=== PATIENT | female | born 1950 ===

== ENCOUNTER 2021-06-20 16:31 | Inpatient (IN) | payer OTHER, MEDICAID ==
[~2021-06-20] VITALS: Ht 157.5 cm; Wt 108.2 kg
[2021-06-20] MEDS ORDERED: ZINC SULFATE 220mg CAP or TAB PO ONE (16:45)
[2021-06-20] MEDS ORDERED: ASCORBIC ACID 500 MG TAB PO ONE (16:45)
[2021-06-20] MEDS ORDERED: DexAMETHasone SOD PHOS 10MG/1ML VIAL INJ IV ONE (16:45)
[2021-06-20] MEDS ORDERED: cefTRIAXone 1GM/50ML D5W 50 ML IV ONE (16:45)
[2021-06-20 17:03] LABS: Basophils # (auto) 0 10 ^3/uL (0-0.2); Eosinophils # (auto) 0 10 ^3/uL (0-0.8); Lymphocytes # (auto) 1.1 10 ^3/uL (0.4-5.4); Monocytes # (auto) 0.7 10 ^3/uL (0-1.3)
[2021-06-20 17:05] LABS: Basophils % (auto) 0.3 % (0.0-2.0); Hemoglobin 11.6 g/dL (12.2-16.2); Lymphocytes % (auto) 10.7 % (10.0-50.0); Mean Corpuscular Hemoglobin 26.7 pg (28.0-32.0); Mean Corpuscular Hgb Conc. 34.3 g/dL (32.0-36.0); Monocytes % (auto) 7.2 % (0.0-12.0); Neutrophils % (auto) 81.8 % (37.0-80.0); Red Blood Cells 4.35 10^6/uL (4.0-5.20); Red Cell Distribution Width 13.9 % (11.8-14.3); White Blood Cell 9.8 10^3/uL (4.4-10.8)
[2021-06-20 17:21] LABS: Albumin 2.3 g/dL (3.4-5.0); Anion Gap 7 (5-15); Blood Urea Nitrogen 20 mg/dL (7-18); Carbon Dioxide 28 mmol/L (21-32); Chloride 97 mmol/L (98-107); Glucose 182 mg/dL (74-106); Potassium 4.4 mmol/L (3.5-5.1); Sodium 132 mmol/L (136-145)
[2021-06-20 17:26] LABS: Alanine Aminotransferase 25 U/L (13-56); Alkaline Phosphatase 94 U/L (45-117); Aspartate Aminotransferase 50 U/L (15-37); BUN/Creatinine Ratio 18.5; Bilirubin, Total 0.6 mg/dL (0.2-1.0); GFR African American 65 mL/min; GFR Non-African American 54 mL/min; Total Protein 7.6 g/dL (6.4-8.2)
[2021-06-20] MEDS ORDERED: REMDESIVIR PER PHARMACY 0 ML IV SCH (18:00)
[2021-06-20] MEDS ORDERED: REMDESIVIR 200 MG in NS 210ml LOADING DOSE ADULT IV ONE (20:00)
[2021-06-20 20:16] LABS: INR 0.92 (0.9-1.15); Partial Thromboplastin Time 29.8 sec (23.0-31.2)
[2021-06-20 20:18] VITALS: BP 170/84
[2021-06-20] MEDS ORDERED: MORPHINE SULFATE INJECTION 2 MG/ML SYRG IV PRN (21:45)
[2021-06-20] MEDS ORDERED: HYDROcodone-ACET 5/325MG TAB PO PRN (21:45)
[2021-06-20] MEDS ORDERED: ONDANSETRON HCL 4 MG/2 ML VIAL IV PRN (21:45)
[2021-06-20] MEDS ORDERED: DEXTROSE (50%) 50ML SYRG IV PRN (21:45)
[2021-06-20] MEDS ORDERED: ALBUTEROL SULF HFA 90MCG INH 200DOSE IN PRN (21:45)
[2021-06-20] MEDS ORDERED: DOCUSATE SOD 100 MG CAP PO PRN (21:45)
[2021-06-20] MEDS ORDERED: NITROGLYCERIN 0.4 MG SL TAB SL PRN (21:45)
[2021-06-20] MEDS ORDERED: ACETAMINOPHEN 325 MG TAB PO PRN (21:45)
[2021-06-20] MEDS ORDERED: BUDESONIDE (INHALATION) 180 MCG IH IN SCH (22:00)
[2021-06-20] MEDS: SODIUM CHLORIDE 0.9% 1,000 ML IV SCH (22:25)
[2021-06-20] MEDS: ENOXAPARIN SOD 40 MG/0.4 ML SYRINGE SC SCH (22:25)
[2021-06-20] MEDS: FAMOTIDINE (10MG/ML) 2ML VL IV SCH (22:25)
[2021-06-20] MEDS: DOXYCYCLINE 100MG/250ML 250 ML IV SCH (23:03)
[2021-06-20 23:26] VITALS: BP 162/76
[2021-06-20] MEDS: BUDESONIDE (INHALATION) 0.5 MG/2 ML NEB NEB SCH (23:26)
[2021-06-20] MEDS: ALBUTEROL SULF 2.5 MG/0.5ML(0.5%) NEB SOLN NEB SCH (23:26)
[2021-06-20] MEDS: IPRATROPIUM BROM 0.5 MG/2.5ML INH SOL NEB SCH (23:26)
[2021-06-21] VITALS (8 sets, daily range): BP systolic 128–169; BP diastolic 65–82
[2021-06-21] MEDS: InsuLIN REG 1unit/0.01ml Soln (100units/ml) SC SCH ×4 (00:08→18:17)
[2021-06-21] MEDS: ACCU-CHEK COMFORT CURVE STRIP VI SCH ×4 (00:15→18:13)
[2021-06-21] MEDS ORDERED: hydrALAZINE HCL 20 MG/ML VL IV PRN (00:15)
[2021-06-21] MEDS: ALBUTEROL SULF 2.5 MG/0.5ML(0.5%) NEB SOLN NEB SCH ×2 (06:02→20:38)
[2021-06-21] MEDS: IPRATROPIUM BROM 0.5 MG/2.5ML INH SOL NEB SCH ×2 (06:02→20:38)
[2021-06-21] MEDS: BUDESONIDE (INHALATION) 0.5 MG/2 ML NEB NEB SCH ×2 (06:02→20:38)
[2021-06-21 07:40] LABS: Basophils # (auto) 0 10 ^3/uL (0-0.2); Eosinophils # (auto) 0 10 ^3/uL (0-0.8); Hemoglobin 10.8 g/dL (12.2-16.2); Lymphocytes # (auto) 0.7 10 ^3/uL (0.4-5.4); Monocytes # (auto) 0.5 10 ^3/uL (0-1.3)
[2021-06-21 07:43] LABS: Basophils % (auto) 0.3 % (0.0-2.0); Hematocrit 31.2 % (36.0-46.0); Mean Corpuscular Hemoglobin 26.8 pg (28.0-32.0); Mean Corpuscular Hgb Conc. 34.5 g/dL (32.0-36.0); Mean Corpuscular Volume 77.6 fL (80.0-100.0); Monocytes % (auto) 6.3 % (0.0-12.0); Neutrophils # (auto) 6.1 10 ^3/uL (1.6-8.6); Neutrophils % (auto) 83.4 % (37.0-80.0); Red Blood Cells 4.01 10^6/uL (4.0-5.20); Red Cell Distribution Width 13.8 % (11.8-14.3); White Blood Cell 7.3 10^3/uL (4.4-10.8)
[2021-06-21 08:01] LABS: Albumin 1.9 g/dL (3.4-5.0); Calcium 7.7 mg/dL (8.5-10.1)
[2021-06-21 08:04] LABS: BUN/Creatinine Ratio 21.8; Bilirubin, Total 0.5 mg/dL (0.2-1.0); Total Protein 6.8 g/dL (6.4-8.2)
[2021-06-21] MEDS ORDERED: ALBU108A5 PO (11:27)
[2021-06-21] MEDS ORDERED: MELO1TAB56 PO (11:27)
[2021-06-21] MEDS ORDERED: INSU300I SC (11:27)
[2021-06-21] MEDS ORDERED: [UNRECOGNIZED DRUG - CODE] PO (11:27)
[2021-06-21] MEDS ORDERED: INSU100I51 SC (11:27)
[2021-06-21] MEDS ORDERED: LISI20TA28 PO (11:27)
[2021-06-21] MEDS ORDERED: ASPI-318 PO (11:27)
[2021-06-21] MEDS: DOXYCYCLINE 100MG/250ML 250 ML IV SCH ×2 (11:36→22:34)
[2021-06-21] MEDS: FAMOTIDINE (10MG/ML) 2ML VL IV SCH (11:36)
[2021-06-21] MEDS: DexAMETHasone SOD PHOS 10MG/1ML VIAL INJ IV SCH (11:36)
[2021-06-21] MEDS: MULTIPLE VITAMIN TAB PO SCH (11:37)
[2021-06-21] MEDS: ASCORBIC ACID 1,000 MG TAB PO SCH (11:37)
[2021-06-21] MEDS: ZINC SULFATE 220mg CAP or TAB PO SCH (11:37)
[2021-06-21] MEDS: ENOXAPARIN SOD 40 MG/0.4 ML SYRINGE SC SCH ×2 (11:38→22:22)
[2021-06-21] MEDS: CHOLECALCIFEROL (VITD3) 2,000 UNIT CAP/TAB PO SCH (11:38)
[2021-06-21] MEDS ORDERED: IOHEXOL 350 MG/ML 100ML IJ ONE (13:22)
[2021-06-21] MEDS ORDERED: SUCCINYLCHOLINE CHLORIDE 20 MG/ML 10ML VIAL IV ONE (14:48)
[2021-06-21] MEDS ORDERED: ETOMIDATE (2MG/ML) 20ML VIAL IV ONE (14:48)
[2021-06-21] MEDS ORDERED: MIDAZOLAM DRIP 50 mg/50mL 50 ML IV ONE (14:48)
[2021-06-21] MEDS: REMDESIVIR 100mg 100 MG in SODIUM CHL 0.9% 230 ML IV SCH (15:00)
[2021-06-21] MEDS: PROPOFOL 100 ML IV SCH (15:03)
[2021-06-21] MEDS: fentaNYL Drip 2500mCg/250mlNS 250 ML IV SCH (15:10)
[2021-06-21] MEDS ORDERED: PROPOFOL 100 ML IV ONE (15:27)
[2021-06-21] MEDS ORDERED: ROCURONIUM 10MG/ML 10ML VIAL IV ONE (15:46)
[2021-06-21] MEDS ORDERED: fentaNYL Drip 2500mCg/250mlNS 250 ML IV ONE (15:46)
[2021-06-21] MEDS ORDERED: NOREPINEPHRINE 8 MG/250ML KIT 250 ML IV ONE (16:20)
[2021-06-21] MEDS: NOREPINEPHRINE 8 MG/250ML KIT 250 ML IV SCH (16:30)
[2021-06-21] MEDS: SODIUM CHLORIDE 0.9% 1,000 ML IV SCH ×2 (16:49→18:18)
[2021-06-21] MEDS: MIDAZOLAM DRIP 50 mg/50mL 50 ML IV SCH (17:23)
[2021-06-21 20:28] LABS: Urine Bacteria NONE SEEN /hpf (None Seen); Urine Blood Negative /uL (Negative); Urine Specific Gravity 1.017 (1.001-1.035); Urine WBC 47 /hpf (0 - 5)
[2021-06-22] VITALS (11 sets, daily range): BP systolic 105–147; BP diastolic 50–68
[2021-06-22] MEDS: ACCU-CHEK COMFORT CURVE STRIP VI SCH ×4 (00:42→18:00)
[2021-06-22] MEDS: InsuLIN REG 1unit/0.01ml Soln (100units/ml) SC SCH ×4 (00:42→18:30)
[2021-06-22] MEDS: ALBUTEROL SULF 2.5 MG/0.5ML(0.5%) NEB SOLN NEB SCH ×3 (06:49→23:10)
[2021-06-22] MEDS: BUDESONIDE (INHALATION) 0.5 MG/2 ML NEB NEB SCH ×2 (06:50→23:10)
[2021-06-22] MEDS: IPRATROPIUM BROM 0.5 MG/2.5ML INH SOL NEB SCH ×3 (06:50→23:10)
[2021-06-22 07:02] LABS: Basophils # (auto) 0 10 ^3/uL (0-0.2); Eosinophils # (auto) 0 10 ^3/uL (0-0.8); Hemoglobin 9.7 g/dL (12.2-16.2); Lymphocytes # (auto) 0.9 10 ^3/uL (0.4-5.4)
[2021-06-22 07:05] LABS: Basophils % (auto) 0.1 % (0.0-2.0); Hematocrit 27.7 % (36.0-46.0); Lymphocytes % (auto) 9.9 % (10.0-50.0); Mean Corpuscular Hemoglobin 27.1 pg (28.0-32.0); Mean Corpuscular Volume 77.3 fL (80.0-100.0); Monocytes # (auto) 0.8 10 ^3/uL (0-1.3); Neutrophils # (auto) 7.8 10 ^3/uL (1.6-8.6); Nucleated Red Blood Cells % 0.1 %; Red Blood Cells 3.58 10^6/uL (4.0-5.20); Red Cell Distribution Width 13.5 % (11.8-14.3); White Blood Cell 9.5 10^3/uL (4.4-10.8)
[2021-06-22 07:26] LABS: Potassium 4.3 mmol/L (3.5-5.1)
[2021-06-22 07:49] LABS: Albumin 1.7 g/dL (3.4-5.0); BUN/Creatinine Ratio 24.8; Bilirubin, Total 0.4 mg/dL (0.2-1.0); CRP High Sensitivity 9.67 mg/dL (< 0.3); Calcium 7.7 mg/dL (8.5-10.1)
[2021-06-22] MEDS: MULTIPLE VITAMIN TAB PO SCH (09:19)
[2021-06-22] MEDS: CHOLECALCIFEROL (VITD3) 2,000 UNIT CAP/TAB PO SCH (09:30)
[2021-06-22] MEDS: ZINC SULFATE 220mg CAP or TAB PO SCH (09:30)
[2021-06-22] MEDS: DexAMETHasone SOD PHOS 10MG/1ML VIAL INJ IV SCH (09:30)
[2021-06-22] MEDS: DOXYCYCLINE 100MG/250ML 250 ML IV SCH (09:30)
[2021-06-22] MEDS: ASCORBIC ACID 1,000 MG TAB PO SCH (09:30)
[2021-06-22] MEDS: ENOXAPARIN SOD 40 MG/0.4 ML SYRINGE SC SCH (09:30)
[2021-06-22] MEDS ORDERED: IOHEXOL 350 MG/ML 100ML IJ ONE (14:12)
[2021-06-22] MEDS: REMDESIVIR 100mg 100 MG in SODIUM CHL 0.9% 230 ML IV SCH (15:00)
[2021-06-22] MEDS: PROPOFOL 100 ML IV SCH (17:15)
[2021-06-22] MEDS: MIDAZOLAM DRIP 50 mg/50mL 50 ML IV SCH (19:40)
[2021-06-22] MEDS: fentaNYL Drip 2500mCg/250mlNS 250 ML IV SCH (19:50)
[2021-06-22] MEDS: SODIUM CHLORIDE 0.9% 1,000 ML IV SCH (23:45)
[2021-06-23] VITALS (66 sets, daily range): BP systolic 110–153; BP diastolic 40–70
[2021-06-23] MEDS: ACCU-CHEK COMFORT CURVE STRIP VI SCH ×4 (02:20→17:33)
[2021-06-23] MEDS: InsuLIN REG 1unit/0.01ml Soln (100units/ml) SC SCH ×4 (02:25→17:58)
[2021-06-23] MEDS: ENOXAPARIN SOD 40 MG/0.4 ML SYRINGE SC SCH ×3 (02:31→20:24)
[2021-06-23] MEDS: DOXYCYCLINE 100MG/250ML 250 ML IV SCH ×3 (02:31→20:23)
[2021-06-23 07:25] LABS: Basophils # (auto) 0 10 ^3/uL (0-0.2); Eosinophils # (auto) 0 10 ^3/uL (0-0.8); Lymphocytes # (auto) 1.1 10 ^3/uL (0.4-5.4)
[2021-06-23 07:27] LABS: Basophils % (auto) 0.2 % (0.0-2.0); Hematocrit 29.2 % (36.0-46.0); Hemoglobin 10.3 g/dL (12.2-16.2); Lymphocytes % (auto) 6.6 % (10.0-50.0); Mean Corpuscular Hemoglobin 27.1 pg (28.0-32.0); Mean Corpuscular Hgb Conc. 35.1 g/dL (32.0-36.0); Monocytes % (auto) 6.1 % (0.0-12.0); Neutrophils # (auto) 14.6 10 ^3/uL (1.6-8.6); Neutrophils % (auto) 87.1 % (37.0-80.0); Red Cell Distribution Width 13.9 % (11.8-14.3); White Blood Cell 16.8 10^3/uL (4.4-10.8)
[2021-06-23] MEDS: ALBUTEROL SULF 2.5 MG/0.5ML(0.5%) NEB SOLN NEB SCH ×3 (07:34→19:19)
[2021-06-23] MEDS: BUDESONIDE (INHALATION) 0.5 MG/2 ML NEB NEB SCH ×2 (07:34→19:19)
[2021-06-23] MEDS: IPRATROPIUM BROM 0.5 MG/2.5ML INH SOL NEB SCH ×3 (07:36→19:19)
[2021-06-23 07:40] LABS: Albumin 1.7 g/dL (3.4-5.0); Calcium 7.7 mg/dL (8.5-10.1); Potassium 4.2 mmol/L (3.5-5.1)
[2021-06-23 07:48] LABS: Bilirubin, Total 0.5 mg/dL (0.2-1.0); CRP High Sensitivity 6.37 mg/dL (< 0.3); Total Protein 5.9 g/dL (6.4-8.2)
[2021-06-23] MEDS: MIDAZOLAM DRIP 50 mg/50mL 50 ML IV SCH ×2 (08:22→18:02)
[2021-06-23] MEDS: DexAMETHasone SOD PHOS 10MG/1ML VIAL INJ IV SCH (10:58)
[2021-06-23] MEDS: CHOLECALCIFEROL (VITD3) 2,000 UNIT CAP/TAB PO SCH (10:59)
[2021-06-23] MEDS: ZINC SULFATE 220mg CAP or TAB PO SCH (10:59)
[2021-06-23] MEDS: MULTIPLE VITAMIN TAB PO SCH (10:59)
[2021-06-23] MEDS: ASCORBIC ACID 1,000 MG TAB PO SCH (11:00)
[2021-06-23 14:24] LABS: INR 1.13 (0.9-1.15); Partial Thromboplastin Time 28.5 sec (23.6-33.0)
[2021-06-23] MEDS ORDERED: OMEP-263 PO (14:30)
[2021-06-23] MEDS ORDERED: LIDOCAINE 1% (LOCAL ANESTH.) PF 5ml SDV ID ONE (16:00)
[2021-06-23] MEDS: SODIUM CHLORIDE 0.9% 1,000 ML IV SCH (16:25)
[2021-06-23] MEDS: REMDESIVIR 100mg 100 MG in SODIUM CHL 0.9% 230 ML IV SCH (16:31)
[2021-06-23] MEDS: NOREPINEPHRINE 8 MG/250ML KIT 250 ML IV SCH (17:15)
[2021-06-23] MEDS: fentaNYL Drip 2500mCg/250mlNS 250 ML IV SCH ×2 (17:15→20:25)
[2021-06-23] MEDS: PROPOFOL 100 ML IV SCH (17:15)
[2021-06-23] MEDS: SODIUM CHLOR 0.9% PF (SALINE LOCK) 10ML VIAL/SYR IV SCH (20:23)
[2021-06-24] VITALS (105 sets, daily range): BP systolic 100–155; BP diastolic 49–65
[2021-06-24] MEDS: ACCU-CHEK COMFORT CURVE STRIP VI SCH ×4 (00:39→17:56)
[2021-06-24] MEDS: InsuLIN REG 1unit/0.01ml Soln (100units/ml) SC SCH ×4 (00:40→17:57)
[2021-06-24] MEDS: MIDAZOLAM DRIP 50 mg/50mL 50 ML IV SCH ×4 (01:46→23:30)
[2021-06-24 05:32] LABS: Basophils # (auto) 0 10 ^3/uL (0-0.2); Basophils % (auto) 0.1 % (0.0-2.0); Eosinophils # (auto) 0 10 ^3/uL (0-0.8); Hemoglobin 10.3 g/dL (12.2-16.2); Lymphocytes # (auto) 0.7 10 ^3/uL (0.4-5.4); Mean Corpuscular Hemoglobin 26.3 pg (28.0-32.0); White Blood Cell 11.2 10^3/uL (4.4-10.8)
[2021-06-24 05:34] LABS: Lymphocytes % (auto) 6.3 % (10.0-50.0); Mean Corpuscular Hgb Conc. 34.3 g/dL (32.0-36.0); Mean Corpuscular Volume 76.8 fL (80.0-100.0); Monocytes # (auto) 0.7 10 ^3/uL (0-1.3); Monocytes % (auto) 5.9 % (0.0-12.0); Neutrophils # (auto) 9.8 10 ^3/uL (1.6-8.6); Neutrophils % (auto) 87.7 % (37.0-80.0); Red Cell Distribution Width 13.6 % (11.8-14.3)
[2021-06-24 05:59] LABS: Albumin 1.5 g/dL (3.4-5.0); Calcium 7.7 mg/dL (8.5-10.1); Potassium 4.3 mmol/L (3.5-5.1)
[2021-06-24 06:08] LABS: BUN/Creatinine Ratio 43.8; Bilirubin, Total 0.5 mg/dL (0.2-1.0); CRP High Sensitivity 11.3 mg/dL (< 0.3); Total Protein 5.9 g/dL (6.4-8.2)
[2021-06-24] MEDS: BUDESONIDE (INHALATION) 0.5 MG/2 ML NEB NEB SCH ×2 (07:05→22:43)
[2021-06-24] MEDS: IPRATROPIUM BROM 0.5 MG/2.5ML INH SOL NEB SCH ×5 (07:05→22:43)
[2021-06-24] MEDS: ALBUTEROL SULF 2.5 MG/0.5ML(0.5%) NEB SOLN NEB SCH ×5 (07:05→22:43)
[2021-06-24] MEDS: SODIUM CHLORIDE 0.9% 1,000 ML IV SCH ×2 (09:05→14:28)
[2021-06-24] MEDS: ENOXAPARIN SOD 40 MG/0.4 ML SYRINGE SC SCH ×2 (09:07→22:22)
[2021-06-24] MEDS: DexAMETHasone SOD PHOS 10MG/1ML VIAL INJ IV SCH (09:07)
[2021-06-24] MEDS: ZINC SULFATE 220mg CAP or TAB PO SCH (09:08)
[2021-06-24] MEDS: MULTIPLE VITAMIN TAB PO SCH (09:08)
[2021-06-24] MEDS: CHOLECALCIFEROL (VITD3) 2,000 UNIT CAP/TAB PO SCH (09:08)
[2021-06-24] MEDS: ASCORBIC ACID 1,000 MG TAB PO SCH (09:08)
[2021-06-24] MEDS: SODIUM CHLOR 0.9% PF (SALINE LOCK) 10ML VIAL/SYR IV SCH ×2 (09:09→22:22)
[2021-06-24] MEDS: DOXYCYCLINE 100MG/250ML 250 ML IV SCH ×2 (09:09→22:22)
[2021-06-24] MEDS: REMDESIVIR 100mg 100 MG in SODIUM CHL 0.9% 230 ML IV SCH (14:28)
[2021-06-24] MEDS: PROPOFOL 100 ML IV SCH (17:15)
[2021-06-24] MEDS: NOREPINEPHRINE 8 MG/250ML KIT 250 ML IV SCH (17:15)
[2021-06-24] MEDS: INSULIN LANTUS (GLARGINE) 1 /0.01ml (100units/ml) SC SCH (22:23)
[2021-06-24] MEDS: Glucerna 1.2 Cal 1Liter BOTTLE GT SCH (22:25)
[2021-06-25] VITALS (108 sets, daily range): BP systolic 80–156; BP diastolic 38–61
[2021-06-25] MEDS: ACCU-CHEK COMFORT CURVE STRIP VI SCH ×4 (00:49→18:00)
[2021-06-25] MEDS: InsuLIN REG 1unit/0.01ml Soln (100units/ml) SC SCH ×4 (00:51→18:38)
[2021-06-25] MEDS: IPRATROPIUM BROM 0.5 MG/2.5ML INH SOL NEB SCH ×6 (02:33→22:53)
[2021-06-25] MEDS: ALBUTEROL SULF 2.5 MG/0.5ML(0.5%) NEB SOLN NEB SCH ×6 (02:33→22:53)
[2021-06-25] MEDS: PROPOFOL 100 ML IV SCH (04:52)
[2021-06-25] MEDS: MIDAZOLAM DRIP 50 mg/50mL 50 ML IV SCH ×4 (05:18→23:34)
[2021-06-25] MEDS: BUDESONIDE (INHALATION) 0.5 MG/2 ML NEB NEB SCH ×2 (06:03→19:08)
[2021-06-25] MEDS: SODIUM CHLOR 0.9% PF (SALINE LOCK) 10ML VIAL/SYR IV SCH ×2 (08:30→21:04)
[2021-06-25] MEDS: DexAMETHasone SOD PHOS 10MG/1ML VIAL INJ IV SCH (08:30)
[2021-06-25] MEDS: DOXYCYCLINE 100MG/250ML 250 ML IV SCH (08:31)
[2021-06-25] MEDS: CHOLECALCIFEROL (VITD3) 2,000 UNIT CAP/TAB PO SCH (08:31)
[2021-06-25] MEDS: ZINC SULFATE 220mg CAP or TAB PO SCH (08:31)
[2021-06-25] MEDS: MULTIPLE VITAMIN TAB PO SCH (08:31)
[2021-06-25] MEDS: ASCORBIC ACID 1,000 MG TAB PO SCH (08:31)
[2021-06-25] MEDS: ENOXAPARIN SOD 40 MG/0.4 ML SYRINGE SC SCH ×2 (08:32→21:06)
[2021-06-25 09:38] LABS: Eosinophils # (auto) 0 10 ^3/uL (0-0.8)
[2021-06-25 10:01] LABS: BUN/Creatinine Ratio 41.2; Calcium 8.1 mg/dL (8.5-10.1); Potassium 4.5 mmol/L (3.5-5.1)
[2021-06-25 10:13] LABS: Basophils # (auto) 0.2 10 ^3/uL (0-0.2); Basophils % (auto) 0.7 % (0.0-2.0); Hematocrit 31.5 % (36.0-46.0); Hemoglobin 10.3 g/dL (12.2-16.2); Lymphocytes # (auto) 0.5 10 ^3/uL (0.4-5.4); Mean Corpuscular Hgb Conc. 32.7 g/dL (32.0-36.0); Mean Corpuscular Volume 79.5 fL (80.0-100.0); Monocytes # (auto) 1.9 10 ^3/uL (0-1.3); Monocytes % (auto) 7.6 % (0.0-12.0); Neutrophils % (auto) 89.7 % (37.0-80.0); Red Blood Cells 3.97 10^6/uL (4.0-5.20); Red Cell Distribution Width 14.4 % (11.8-14.3); White Blood Cell 24.5 10^3/uL (4.4-10.8)
[2021-06-25] MEDS: fentaNYL Drip 2500mCg/250mlNS 250 ML IV SCH ×2 (11:24→19:31)
[2021-06-25] MEDS: NOREPINEPHRINE 8 MG/250ML KIT 250 ML IV SCH (14:09)
[2021-06-25] MEDS: SODIUM CHLORIDE 0.9% 1,000 ML IV SCH (16:50)
[2021-06-25] MEDS: METOCLOPRAMIDE HCL 5MG/ml INJ 2ml VIAL IV SCH (21:04)
[2021-06-25] MEDS: INSULIN LANTUS (GLARGINE) 1 /0.01ml (100units/ml) SC SCH (21:05)
[2021-06-26] VITALS (95 sets, daily range): BP systolic 86–161; BP diastolic 35–68
[2021-06-26] MEDS: MIDAZOLAM DRIP 50 mg/50mL 50 ML IV SCH ×3 (00:24→21:13)
[2021-06-26] MEDS: PROPOFOL 100 ML IV SCH ×4 (00:25→21:14)
[2021-06-26] MEDS: InsuLIN REG 1unit/0.01ml Soln (100units/ml) SC SCH ×4 (00:55→18:14)
[2021-06-26] MEDS: ACCU-CHEK COMFORT CURVE STRIP VI SCH ×4 (00:56→18:08)
[2021-06-26] MEDS: ALBUTEROL SULF 2.5 MG/0.5ML(0.5%) NEB SOLN NEB SCH ×5 (02:46→22:37)
[2021-06-26] MEDS: IPRATROPIUM BROM 0.5 MG/2.5ML INH SOL NEB SCH ×6 (02:47→22:37)
[2021-06-26 06:03] LABS: Basophils # (auto) 0 10 ^3/uL (0-0.2); Basophils % (auto) 0.2 % (0.0-2.0); Eosinophils # (auto) 0 10 ^3/uL (0-0.8); Hematocrit 27.1 % (36.0-46.0); Hemoglobin 8.9 g/dL (12.2-16.2); Lymphocytes # (auto) 0.9 10 ^3/uL (0.4-5.4); Lymphocytes % (auto) 4.9 % (10.0-50.0); Mean Corpuscular Hemoglobin 25.9 pg (28.0-32.0); Mean Corpuscular Hgb Conc. 32.8 g/dL (32.0-36.0); Mean Corpuscular Volume 78.9 fL (80.0-100.0); Monocytes # (auto) 0.8 10 ^3/uL (0-1.3); Monocytes % (auto) 4.5 % (0.0-12.0); Neutrophils # (auto) 15.8 10 ^3/uL (1.6-8.6); Neutrophils % (auto) 90.4 % (37.0-80.0); Red Blood Cells 3.43 10^6/uL (4.0-5.20); Red Cell Distribution Width 14.5 % (11.8-14.3); White Blood Cell 17.5 10^3/uL (4.4-10.8)
[2021-06-26 06:13] LABS: BUN/Creatinine Ratio 39.6; Calcium 7.6 mg/dL (8.5-10.1); Potassium 4.7 mmol/L (3.5-5.1)
[2021-06-26] MEDS: Glucerna 1.2 Cal 1Liter BOTTLE GT SCH (06:25)
[2021-06-26] MEDS: fentaNYL Drip 2500mCg/250mlNS 250 ML IV SCH ×2 (06:26→15:58)
[2021-06-26] MEDS ORDERED: HEPARIN DRIP/D5W 100UNITS/ML 250 ML IV SCH ×2 (09:00→19:00)
[2021-06-26] MEDS ORDERED: HEPARIN SODIUM (PORCINE) 5000 UNITS/ML 1ML VIAL IV ONE (09:00)
[2021-06-26] MEDS ORDERED: AMIODARONE HCL 150 MG in D5W 5% 100 ML IV ONE (09:00)
[2021-06-26] MEDS ORDERED: AMIODARONE 450mg/250ml AE 250 ML IV SCH (09:15)
[2021-06-26 09:29] LABS: Basophils # (auto) 0 10 ^3/uL (0-0.2); Basophils % (auto) 0.2 % (0.0-2.0); Eosinophils # (auto) 0 10 ^3/uL (0-0.8); Hematocrit 27.6 % (36.0-46.0)
[2021-06-26 09:31] LABS: Lymphocytes % (auto) 5.5 % (10.0-50.0); Mean Corpuscular Hemoglobin 25.8 pg (28.0-32.0); Mean Corpuscular Hgb Conc. 32.6 g/dL (32.0-36.0); Monocytes # (auto) 0.5 10 ^3/uL (0-1.3); Monocytes % (auto) 3.1 % (0.0-12.0); Neutrophils # (auto) 15.7 10 ^3/uL (1.6-8.6); Neutrophils % (auto) 91.2 % (37.0-80.0); Red Cell Distribution Width 14.5 % (11.8-14.3); White Blood Cell 17.2 10^3/uL (4.4-10.8)
[2021-06-26] MEDS: BUDESONIDE (INHALATION) 0.5 MG/2 ML NEB NEB SCH ×2 (09:45→19:03)
[2021-06-26 09:46] LABS: INR 1.12 (0.9-1.15); Partial Thromboplastin Time 24.2 sec (23.6-33.0)
[2021-06-26] MEDS: METOCLOPRAMIDE HCL 5MG/ml INJ 2ml VIAL IV SCH ×2 (10:14→22:40)
[2021-06-26] MEDS: CHOLECALCIFEROL (VITD3) 2,000 UNIT CAP/TAB PO SCH (10:15)
[2021-06-26] MEDS: SODIUM CHLOR 0.9% PF (SALINE LOCK) 10ML VIAL/SYR IV SCH ×2 (10:15→22:41)
[2021-06-26] MEDS: DexAMETHasone SOD PHOS 10MG/1ML VIAL INJ IV SCH (10:15)
[2021-06-26] MEDS: ZINC SULFATE 220mg CAP or TAB PO SCH (10:15)
[2021-06-26] MEDS: MULTIPLE VITAMIN TAB PO SCH (10:15)
[2021-06-26] MEDS: ASCORBIC ACID 1,000 MG TAB PO SCH (10:15)
[2021-06-26] MEDS: SODIUM CHLORIDE 0.9% 1,000 ML IV SCH (11:15)
[2021-06-26 16:07] LABS: Protein, Urine 18.5 mg/dL (0.0-11.9)
[2021-06-26] MEDS: AMIODARONE 450mg/250ml AE 250 ML IV SCH ×2 (16:07→21:15)
[2021-06-26 17:32] LABS: INR 1.21 (0.9-1.15)
[2021-06-26 17:34] LABS: Partial Thromboplastin Time > 139.0 sec (23.6-33.0)
[2021-06-26] MEDS: NOREPINEPHRINE 8 MG/250ML KIT 250 ML IV SCH (21:14)
[2021-06-26] MEDS: INSULIN LANTUS (GLARGINE) 1 /0.01ml (100units/ml) SC SCH (22:40)
[2021-06-26] MEDS ORDERED: INSULIN LANTUS (GLARGINE) 1 /0.01ml (100units/ml) SC ONE (23:00)
[2021-06-26 23:30] LABS: INR 1.19 (0.9-1.15)
[2021-06-27] VITALS (105 sets, daily range): BP systolic 107–149; BP diastolic 39–58
[2021-06-27 00:09] LABS: Partial Thromboplastin Time > 139.0 sec (23.6-33.0)
[2021-06-27] MEDS: MIDAZOLAM DRIP 50 mg/50mL 50 ML IV SCH ×4 (00:24→22:22)
[2021-06-27] MEDS: InsuLIN REG 1unit/0.01ml Soln (100units/ml) SC SCH ×4 (00:53→17:42)
[2021-06-27] MEDS: ALBUTEROL SULF 2.5 MG/0.5ML(0.5%) NEB SOLN NEB SCH ×6 (02:44→22:38)
[2021-06-27] MEDS: IPRATROPIUM BROM 0.5 MG/2.5ML INH SOL NEB SCH ×6 (02:44→22:38)
[2021-06-27] MEDS: SODIUM CHLORIDE 0.9% 1,000 ML IV SCH (03:45)
[2021-06-27] MEDS: fentaNYL Drip 2500mCg/250mlNS 250 ML IV SCH ×2 (04:56→15:46)
[2021-06-27] MEDS: ACCU-CHEK COMFORT CURVE STRIP VI SCH ×4 (05:42→17:41)
[2021-06-27] MEDS: BUDESONIDE (INHALATION) 0.5 MG/2 ML NEB NEB SCH ×2 (06:04→19:11)
[2021-06-27 06:10] LABS: Basophils # (auto) 0.1 10 ^3/uL (0-0.2); Eosinophils # (auto) 0 10 ^3/uL (0-0.8); Hemoglobin 9.4 g/dL (12.2-16.2); Lymphocytes # (auto) 0.3 10 ^3/uL (0.4-5.4); Monocytes # (auto) 0.5 10 ^3/uL (0-1.3); Red Cell Distribution Width 14.8 % (11.8-14.3)
[2021-06-27 06:12] LABS: Basophils % (auto) 0.7 % (0.0-2.0); Hematocrit 27.8 % (36.0-46.0); Lymphocytes % (auto) 1.6 % (10.0-50.0); Mean Corpuscular Hemoglobin 26.9 pg (28.0-32.0); Mean Corpuscular Hgb Conc. 33.7 g/dL (32.0-36.0); Mean Corpuscular Volume 79.8 fL (80.0-100.0); Monocytes % (auto) 3.2 % (0.0-12.0); Neutrophils # (auto) 15.9 10 ^3/uL (1.6-8.6); Neutrophils % (auto) 94.5 % (37.0-80.0); Nucleated Red Blood Cells % 0.1 %; Red Blood Cells 3.48 10^6/uL (4.0-5.20); White Blood Cell 16.8 10^3/uL (4.4-10.8)
[2021-06-27 07:16] LABS: BUN/Creatinine Ratio 40.6; Potassium 4.6 mmol/L (3.5-5.1)
[2021-06-27 07:42] LABS: INR 1.11 (0.9-1.15)
[2021-06-27] MEDS: SODIUM CHLOR 0.9% PF (SALINE LOCK) 10ML VIAL/SYR IV SCH ×2 (10:00→21:58)
[2021-06-27] MEDS: CHOLECALCIFEROL (VITD3) 2,000 UNIT CAP/TAB PO SCH (10:00)
[2021-06-27] MEDS: DexAMETHasone SOD PHOS 10MG/1ML VIAL INJ IV SCH (10:29)
[2021-06-27] MEDS: METOCLOPRAMIDE HCL 5MG/ml INJ 2ml VIAL IV SCH ×2 (10:30→21:57)
[2021-06-27] MEDS: ASCORBIC ACID 1,000 MG TAB PO SCH (10:30)
[2021-06-27] MEDS: ZINC SULFATE 220mg CAP or TAB PO SCH (10:30)
[2021-06-27] MEDS: MULTIPLE VITAMIN TAB PO SCH (10:30)
[2021-06-27] MEDS: AMIODARONE HCL 200 MG TAB PO SCH ×2 (10:32→21:58)
[2021-06-27] MEDS: PROPOFOL 100 ML IV SCH ×3 (12:57→23:29)
[2021-06-27 15:42] LABS: INR 1.05 (0.9-1.15); Partial Thromboplastin Time 65.5 sec (23.6-33.0)
[2021-06-27] MEDS: DOXYCYCLINE 100MG/250ML 250 ML IV SCH (16:02)
[2021-06-27] MEDS: NOREPINEPHRINE 8 MG/250ML KIT 250 ML IV SCH (17:15)
[2021-06-27] MEDS: ENOXAPARIN SOD 100 MG/1 ML SYRINGE SC SCH (21:59)
[2021-06-27] MEDS: INSULIN LANTUS (GLARGINE) 1 /0.01ml (100units/ml) SC SCH (22:00)
[2021-06-28] VITALS (105 sets, daily range): BP systolic 109–162; BP diastolic 38–60
[2021-06-28] MEDS: DOXYCYCLINE 100MG/250ML 250 ML IV SCH ×2 (01:30→12:56)
[2021-06-28] MEDS: InsuLIN REG 1unit/0.01ml Soln (100units/ml) SC SCH ×4 (01:31→18:00)
[2021-06-28] MEDS: MIDAZOLAM DRIP 50 mg/50mL 50 ML IV SCH ×5 (02:23→22:33)
[2021-06-28] MEDS: ALBUTEROL SULF 2.5 MG/0.5ML(0.5%) NEB SOLN NEB SCH ×6 (02:26→22:05)
[2021-06-28] MEDS: IPRATROPIUM BROM 0.5 MG/2.5ML INH SOL NEB SCH ×6 (02:26→22:05)
[2021-06-28 05:28] LABS: Basophils # (auto) 0 10 ^3/uL (0-0.2); Basophils % (auto) 0.1 % (0.0-2.0); Eosinophils # (auto) 0 10 ^3/uL (0-0.8); Lymphocytes # (auto) 0.4 10 ^3/uL (0.4-5.4); Mean Corpuscular Hgb Conc. 32.7 g/dL (32.0-36.0); Monocytes # (auto) 0.5 10 ^3/uL (0-1.3); Monocytes % (auto) 3.7 % (0.0-12.0)
[2021-06-28 05:30] LABS: Hematocrit 27.2 % (36.0-46.0); Hemoglobin 8.9 g/dL (12.2-16.2); Lymphocytes % (auto) 2.4 % (10.0-50.0); Mean Corpuscular Hemoglobin 26.1 pg (28.0-32.0); Mean Corpuscular Volume 79.8 fL (80.0-100.0); Neutrophils # (auto) 13.7 10 ^3/uL (1.6-8.6); Neutrophils % (auto) 93.8 % (37.0-80.0); Red Blood Cells 3.41 10^6/uL (4.0-5.20); Red Cell Distribution Width 14.9 % (11.8-14.3); White Blood Cell 14.6 10^3/uL (4.4-10.8)
[2021-06-28] MEDS: fentaNYL Drip 2500mCg/250mlNS 250 ML IV SCH ×2 (05:43→16:42)
[2021-06-28 05:52] LABS: BUN/Creatinine Ratio 45.6; Calcium 8.4 mg/dL (8.5-10.1); Potassium 5.4 mmol/L (3.5-5.1)
[2021-06-28] MEDS: ACCU-CHEK COMFORT CURVE STRIP VI SCH ×4 (06:24→18:00)
[2021-06-28] MEDS: PROPOFOL 100 ML IV SCH ×4 (06:25→20:43)
[2021-06-28] MEDS: BUDESONIDE (INHALATION) 0.5 MG/2 ML NEB NEB SCH ×2 (08:29→22:05)
[2021-06-28] MEDS: METOCLOPRAMIDE HCL 5MG/ml INJ 2ml VIAL IV SCH ×2 (10:05→22:31)
[2021-06-28] MEDS: DexAMETHasone SOD PHOS 10MG/1ML VIAL INJ IV SCH (10:05)
[2021-06-28] MEDS: ASCORBIC ACID 1,000 MG TAB PO SCH (10:05)
[2021-06-28] MEDS: CHOLECALCIFEROL (VITD3) 2,000 UNIT CAP/TAB PO SCH (10:05)
[2021-06-28] MEDS: AMIODARONE HCL 200 MG TAB PO SCH ×2 (10:05→22:31)
[2021-06-28] MEDS: MULTIPLE VITAMIN TAB PO SCH (10:06)
[2021-06-28] MEDS: SODIUM CHLOR 0.9% PF (SALINE LOCK) 10ML VIAL/SYR IV SCH ×2 (10:06→22:31)
[2021-06-28] MEDS: ZINC SULFATE 220mg CAP or TAB PO SCH (10:06)
[2021-06-28] MEDS: ENOXAPARIN SOD 100 MG/1 ML SYRINGE SC SCH ×2 (10:06→22:32)
[2021-06-28] MEDS ORDERED: CALCIUM GLUC 1,000mg/50ml-NS 50 ML IV ONE (10:45)
[2021-06-28] MEDS ORDERED: SODIUM BICARBONATE 8.4 % INJ 50ML VIAL IV ONE (10:45)
[2021-06-28] MEDS ORDERED: DEXTROSE (50%) 50ML SYRG IV ONE (10:45)
[2021-06-28] MEDS ORDERED: FUROSEMIDE 40 MG/4 ML VIAL IV ONE (10:45)
[2021-06-28] MEDS ORDERED: InsuLIN REG 1unit/0.01ml Soln (100units/ml) SC ONE (10:45)
[2021-06-28] MEDS: NOREPINEPHRINE 8 MG/250ML KIT 250 ML IV SCH (17:15)
[2021-06-28] MEDS: INSULIN LANTUS (GLARGINE) 1 /0.01ml (100units/ml) SC SCH (22:32)
[2021-06-29] VITALS (98 sets, daily range): BP systolic 109–162; BP diastolic 35–58
[2021-06-29] MEDS: InsuLIN REG 1unit/0.01ml Soln (100units/ml) SC SCH ×4 (01:10→17:27)
[2021-06-29] MEDS: PROPOFOL 100 ML IV SCH ×5 (01:11→18:45)
[2021-06-29] MEDS: ALBUTEROL SULF 2.5 MG/0.5ML(0.5%) NEB SOLN NEB SCH ×6 (02:04→21:54)
[2021-06-29] MEDS: IPRATROPIUM BROM 0.5 MG/2.5ML INH SOL NEB SCH ×6 (02:04→21:54)
[2021-06-29] MEDS: DOXYCYCLINE 100MG/250ML 250 ML IV SCH ×2 (02:05→12:20)
[2021-06-29] MEDS: MIDAZOLAM DRIP 50 mg/50mL 50 ML IV SCH ×6 (04:32→21:44)
[2021-06-29 05:46] LABS: Basophils # (auto) 0.1 10 ^3/uL (0-0.2); Basophils % (auto) 0.3 % (0.0-2.0); Eosinophils # (auto) 0 10 ^3/uL (0-0.8); Hemoglobin 9.2 g/dL (12.2-16.2); Red Cell Distribution Width 14.9 % (11.8-14.3); White Blood Cell 15.8 10^3/uL (4.4-10.8)
[2021-06-29 05:48] LABS: Hematocrit 28.3 % (36.0-46.0); Lymphocytes # (auto) 0.6 10 ^3/uL (0.4-5.4); Lymphocytes % (auto) 3.5 % (10.0-50.0); Mean Corpuscular Hemoglobin 25.7 pg (28.0-32.0); Mean Corpuscular Hgb Conc. 32.6 g/dL (32.0-36.0); Mean Corpuscular Volume 78.8 fL (80.0-100.0); Monocytes # (auto) 0.8 10 ^3/uL (0-1.3); Monocytes % (auto) 5.2 % (0.0-12.0); Neutrophils # (auto) 14.3 10 ^3/uL (1.6-8.6); Red Blood Cells 3.59 10^6/uL (4.0-5.20)
[2021-06-29] MEDS: ACCU-CHEK COMFORT CURVE STRIP VI SCH ×4 (06:13→17:33)
[2021-06-29] MEDS: fentaNYL Drip 2500mCg/250mlNS 250 ML IV SCH (06:15)
[2021-06-29] MEDS: BUDESONIDE (INHALATION) 0.5 MG/2 ML NEB NEB SCH ×2 (06:24→18:30)
[2021-06-29 06:31] LABS: Albumin 1.5 g/dL (3.4-5.0); BUN/Creatinine Ratio 44.5; Bilirubin, Total 0.3 mg/dL (0.2-1.0); Calcium 8.7 mg/dL (8.5-10.1); Phosphorus 3.3 mg/dL (2.5-4.90); Total Protein 5.7 g/dL (6.4-8.2)
[2021-06-29 06:53] LABS: Potassium 5.7 mmol/L (3.5-5.1)
[2021-06-29] MEDS ORDERED: SODIUM ZIRCONIUM CYCL 10 GM PAK PO SCH (09:15)
[2021-06-29] MEDS: DexAMETHasone SOD PHOS 10MG/1ML VIAL INJ IV SCH (10:40)
[2021-06-29] MEDS: ZINC SULFATE 220mg CAP or TAB PO SCH (10:41)
[2021-06-29] MEDS: SODIUM CHLOR 0.9% PF (SALINE LOCK) 10ML VIAL/SYR IV SCH ×2 (10:41→21:40)
[2021-06-29] MEDS: METOCLOPRAMIDE HCL 5MG/ml INJ 2ml VIAL IV SCH ×2 (10:41→21:39)
[2021-06-29] MEDS: AMIODARONE HCL 200 MG TAB PO SCH ×2 (10:41→21:39)
[2021-06-29] MEDS: PANTOPRAZOLE 40 MG/10 ML VIAL INJ IV SCH (10:41)
[2021-06-29] MEDS: ENOXAPARIN SOD 100 MG/1 ML SYRINGE SC SCH ×2 (10:42→21:39)
[2021-06-29] MEDS: CHOLECALCIFEROL (VITD3) 2,000 UNIT CAP/TAB PO SCH (10:42)
[2021-06-29] MEDS: MULTIPLE VITAMIN TAB PO SCH (10:42)
[2021-06-29] MEDS: ASCORBIC ACID 1,000 MG TAB PO SCH (10:42)
[2021-06-29] MEDS ORDERED: SODIUM ZIRCONIUM CYCL 10 GM PAK PO ONE (14:00)
[2021-06-29] MEDS: NOREPINEPHRINE 8 MG/250ML KIT 250 ML IV SCH (17:15)
[2021-06-29] MEDS ORDERED: FUROSEMIDE 100 MG/10ML VIAL IV ONE (18:15)
[2021-06-29] MEDS: SODIUM ZIRCONIUM CYCL 10 GM PAK PO SCH (21:39)
[2021-06-29] MEDS: INSULIN LANTUS (GLARGINE) 1 /0.01ml (100units/ml) SC SCH (21:41)
[2021-06-30] VITALS (103 sets, daily range): BP systolic 86–160; BP diastolic 32–57
[2021-06-30] MEDS: DOXYCYCLINE 100MG/250ML 250 ML IV SCH ×2 (01:08→13:09)
[2021-06-30] MEDS: InsuLIN REG 1unit/0.01ml Soln (100units/ml) SC SCH ×4 (01:24→18:31)
[2021-06-30] MEDS: IPRATROPIUM BROM 0.5 MG/2.5ML INH SOL NEB SCH ×6 (02:38→22:28)
[2021-06-30] MEDS: ALBUTEROL SULF 2.5 MG/0.5ML(0.5%) NEB SOLN NEB SCH ×6 (02:38→22:28)
[2021-06-30 06:00] LABS: Hematocrit 29.7 % (36.0-46.0); Hemoglobin 9.7 g/dL (12.2-16.2); Mean Corpuscular Hemoglobin 26.2 pg (28.0-32.0); Mean Corpuscular Hgb Conc. 32.6 g/dL (32.0-36.0); Mean Corpuscular Volume 80.2 fL (80.0-100.0); Red Cell Distribution Width 14.8 % (11.8-14.3); White Blood Cell 20.1 10^3/uL (4.4-10.8)
[2021-06-30] MEDS: ACCU-CHEK COMFORT CURVE STRIP VI SCH ×4 (06:00→18:04)
[2021-06-30 06:05] LABS: Basophils % (manual) 0 (0.0-2.0); Eosinophils % (manual) 0 (0-7); Promyelocytes % 0; Reactive Lymphocytes 0
[2021-06-30 06:06] LABS: Blast Cells 0
[2021-06-30 06:17] LABS: Calcium 8.4 mg/dL (8.5-10.1); Potassium 5.3 mmol/L (3.5-5.1)
[2021-06-30 06:19] LABS: BUN/Creatinine Ratio 50.5
[2021-06-30] MEDS: SODIUM ZIRCONIUM CYCL 10 GM PAK PO SCH ×2 (06:34→14:00)
[2021-06-30] MEDS: MIDAZOLAM DRIP 50 mg/50mL 50 ML IV SCH ×2 (06:37→20:10)
[2021-06-30] MEDS: fentaNYL Drip 2500mCg/250mlNS 250 ML IV SCH (06:37)
[2021-06-30] MEDS: BUDESONIDE (INHALATION) 0.5 MG/2 ML NEB NEB SCH ×2 (06:38→18:27)
[2021-06-30] MEDS: PROPOFOL 100 ML IV SCH (06:38)
[2021-06-30 08:28] LABS: Band Neutrophils % (manual) 7; Lymphocytes % (manual) 1 (10.0-50.0); Metamyelocytes % 2; Monocytes % (manual) 1 (0-12); Myelocytes % 1
[2021-06-30] MEDS: DexAMETHasone SOD PHOS 10MG/1ML VIAL INJ IV SCH (10:22)
[2021-06-30] MEDS: PANTOPRAZOLE 40 MG/10 ML VIAL INJ IV SCH (10:22)
[2021-06-30] MEDS: MULTIPLE VITAMIN TAB PO SCH (10:23)
[2021-06-30] MEDS: CHOLECALCIFEROL (VITD3) 2,000 UNIT CAP/TAB PO SCH (10:23)
[2021-06-30] MEDS: ZINC SULFATE 220mg CAP or TAB PO SCH (10:23)
[2021-06-30] MEDS: AMIODARONE HCL 200 MG TAB PO SCH (10:23)
[2021-06-30] MEDS: ASCORBIC ACID 1,000 MG TAB PO SCH (10:23)
[2021-06-30] MEDS: METOCLOPRAMIDE HCL 5MG/ml INJ 2ml VIAL IV SCH (10:23)
[2021-06-30] MEDS: SODIUM CHLOR 0.9% PF (SALINE LOCK) 10ML VIAL/SYR IV SCH (10:24)
[2021-06-30] MEDS: ENOXAPARIN SOD 100 MG/1 ML SYRINGE SC SCH (10:24)
[2021-06-30] MEDS: NOREPINEPHRINE 8 MG/250ML KIT 250 ML IV SCH (15:28)
[2021-07-01] VITALS (104 sets, daily range): BP systolic 93–163; BP diastolic 33–60
[2021-07-01] MEDS: SODIUM CHLOR 0.9% PF (SALINE LOCK) 10ML VIAL/SYR IV SCH ×3 (00:11→22:16)
[2021-07-01] MEDS: METOCLOPRAMIDE HCL 5MG/ml INJ 2ml VIAL IV SCH ×3 (00:11→22:16)
[2021-07-01] MEDS: INSULIN LANTUS (GLARGINE) 1 /0.01ml (100units/ml) SC SCH ×2 (00:12→22:21)
[2021-07-01] MEDS: SODIUM ZIRCONIUM CYCL 10 GM PAK PO SCH ×2 (00:12→06:04)
[2021-07-01] MEDS: AMIODARONE HCL 200 MG TAB PO SCH ×3 (00:12→22:16)
[2021-07-01] MEDS: ENOXAPARIN SOD 100 MG/1 ML SYRINGE SC SCH ×3 (00:13→22:17)
[2021-07-01] MEDS: DOXYCYCLINE 100MG/250ML 250 ML IV SCH ×2 (00:43→13:29)
[2021-07-01] MEDS: PROPOFOL 100 ML IV SCH ×2 (01:07→09:41)
[2021-07-01] MEDS: MIDAZOLAM DRIP 50 mg/50mL 50 ML IV SCH ×4 (01:08→22:17)
[2021-07-01] MEDS: IPRATROPIUM BROM 0.5 MG/2.5ML INH SOL NEB SCH ×6 (02:16→22:14)
[2021-07-01] MEDS: ALBUTEROL SULF 2.5 MG/0.5ML(0.5%) NEB SOLN NEB SCH ×6 (02:16→22:14)
[2021-07-01] MEDS: ACCU-CHEK COMFORT CURVE STRIP VI SCH ×4 (06:17→17:49)
[2021-07-01] MEDS: InsuLIN REG 1unit/0.01ml Soln (100units/ml) SC SCH ×4 (06:17→17:50)
[2021-07-01] MEDS: BUDESONIDE (INHALATION) 0.5 MG/2 ML NEB NEB SCH ×2 (06:51→18:44)
[2021-07-01] MEDS: DexAMETHasone SOD PHOS 10MG/1ML VIAL INJ IV SCH (09:52)
[2021-07-01] MEDS: PANTOPRAZOLE 40 MG/10 ML VIAL INJ IV SCH (09:52)
[2021-07-01] MEDS: CHOLECALCIFEROL (VITD3) 2,000 UNIT CAP/TAB PO SCH (09:53)
[2021-07-01] MEDS: ZINC SULFATE 220mg CAP or TAB PO SCH (09:53)
[2021-07-01] MEDS: MULTIPLE VITAMIN TAB PO SCH (09:54)
[2021-07-01] MEDS: ASCORBIC ACID 1,000 MG TAB PO SCH (09:56)
[2021-07-01 12:20] LABS: Potassium 4.4 mmol/L (3.5-5.1)
[2021-07-01 12:24] LABS: BUN/Creatinine Ratio 59.2; Calcium 7.9 mg/dL (8.5-10.1)
[2021-07-01] MEDS: fentaNYL Drip 2500mCg/250mlNS 250 ML IV SCH (16:41)
[2021-07-01] MEDS: NOREPINEPHRINE 8 MG/250ML KIT 250 ML IV SCH (16:50)
[2021-07-01] MEDS: AMPICILLIN INJ 500 MG in SODIUM CHL 0.9% 50 ML IV SCH (18:00)
[2021-07-02] VITALS (105 sets, daily range): BP systolic 109–165; BP diastolic 37–62
[2021-07-02] MEDS: AMPICILLIN INJ 500 MG in SODIUM CHL 0.9% 50 ML IV SCH ×4 (00:32→17:58)
[2021-07-02] MEDS: ACCU-CHEK COMFORT CURVE STRIP VI SCH ×4 (00:33→17:58)
[2021-07-02] MEDS: InsuLIN REG 1unit/0.01ml Soln (100units/ml) SC SCH ×4 (00:57→18:01)
[2021-07-02] MEDS: DOXYCYCLINE 100MG/250ML 250 ML IV SCH ×2 (00:58→13:00)
[2021-07-02] MEDS: ALBUTEROL SULF 2.5 MG/0.5ML(0.5%) NEB SOLN NEB SCH ×6 (02:17→22:30)
[2021-07-02] MEDS: IPRATROPIUM BROM 0.5 MG/2.5ML INH SOL NEB SCH ×6 (02:17→22:30)
[2021-07-02] MEDS: fentaNYL Drip 2500mCg/250mlNS 250 ML IV SCH (04:48)
[2021-07-02 05:01] LABS: Basophils # (auto) 0.1 10 ^3/uL (0-0.2); Basophils % (auto) 0.6 % (0.0-2.0); Eosinophils # (auto) 0 10 ^3/uL (0-0.8); Hematocrit 27.1 % (36.0-46.0); Hemoglobin 9.1 g/dL (12.2-16.2); Lymphocytes # (auto) 0.9 10 ^3/uL (0.4-5.4); Lymphocytes % (auto) 5.4 % (10.0-50.0); Mean Corpuscular Hemoglobin 26.3 pg (28.0-32.0); Mean Corpuscular Hgb Conc. 33.5 g/dL (32.0-36.0); Mean Corpuscular Volume 78.5 fL (80.0-100.0); Monocytes # (auto) 0.6 10 ^3/uL (0-1.3); Monocytes % (auto) 3.4 % (0.0-12.0); Neutrophils # (auto) 15.7 10 ^3/uL (1.6-8.6); Neutrophils % (auto) 90.6 % (37.0-80.0); Red Blood Cells 3.45 10^6/uL (4.0-5.20); Red Cell Distribution Width 14.4 % (11.8-14.3); White Blood Cell 17.3 10^3/uL (4.4-10.8)
[2021-07-02] MEDS: MIDAZOLAM DRIP 50 mg/50mL 50 ML IV SCH (05:12)
[2021-07-02 05:20] LABS: Albumin 1.3 g/dL (3.4-5.0); Calcium 7.8 mg/dL (8.5-10.1); Potassium 4.7 mmol/L (3.5-5.1)
[2021-07-02 05:28] LABS: BUN/Creatinine Ratio 48.6; Bilirubin, Total 0.3 mg/dL (0.2-1.0); CRP High Sensitivity 5.05 mg/dL (< 0.3); Total Protein 5.2 g/dL (6.4-8.2)
[2021-07-02] MEDS: BUDESONIDE (INHALATION) 0.5 MG/2 ML NEB NEB SCH ×2 (06:22→22:30)
[2021-07-02] MEDS: CHOLECALCIFEROL (VITD3) 2,000 UNIT CAP/TAB PO SCH (10:24)
[2021-07-02] MEDS: ENOXAPARIN SOD 100 MG/1 ML SYRINGE SC SCH (10:24)
[2021-07-02] MEDS: ASCORBIC ACID 1,000 MG TAB PO SCH (10:24)
[2021-07-02] MEDS: AMIODARONE HCL 200 MG TAB PO SCH (10:25)
[2021-07-02] MEDS: DexAMETHasone SOD PHOS 10MG/1ML VIAL INJ IV SCH (10:25)
[2021-07-02] MEDS: ZINC SULFATE 220mg CAP or TAB PO SCH (10:25)
[2021-07-02] MEDS: MULTIPLE VITAMIN TAB PO SCH (10:25)
[2021-07-02] MEDS: SODIUM CHLOR 0.9% PF (SALINE LOCK) 10ML VIAL/SYR IV SCH (10:25)
[2021-07-02] MEDS: METOCLOPRAMIDE HCL 5MG/ml INJ 2ml VIAL IV SCH (10:25)
[2021-07-02] MEDS: PANTOPRAZOLE 40 MG/10 ML VIAL INJ IV SCH (10:25)
[2021-07-02] MEDS: PROPOFOL 100 ML IV SCH (17:12)
[2021-07-02] MEDS: NOREPINEPHRINE 8 MG/250ML KIT 250 ML IV SCH (17:15)
[2021-07-03] VITALS (93 sets, daily range): BP systolic 92–159; BP diastolic 24–53
[2021-07-03] MEDS: METOCLOPRAMIDE HCL 5MG/ml INJ 2ml VIAL IV SCH ×3 (00:04→23:16)
[2021-07-03] MEDS: SODIUM CHLOR 0.9% PF (SALINE LOCK) 10ML VIAL/SYR IV SCH ×3 (00:05→23:16)
[2021-07-03] MEDS: ENOXAPARIN SOD 100 MG/1 ML SYRINGE SC SCH ×3 (00:05→23:23)
[2021-07-03] MEDS: AMIODARONE HCL 200 MG TAB PO SCH ×3 (00:05→22:00)
[2021-07-03] MEDS: MIDAZOLAM DRIP 50 mg/50mL 50 ML IV SCH ×3 (00:06→18:00)
[2021-07-03] MEDS: ACCU-CHEK COMFORT CURVE STRIP VI SCH ×4 (00:06→18:05)
[2021-07-03] MEDS: INSULIN LANTUS (GLARGINE) 1 /0.01ml (100units/ml) SC SCH ×2 (00:07→23:25)
[2021-07-03] MEDS: InsuLIN REG 1unit/0.01ml Soln (100units/ml) SC SCH ×4 (00:08→18:43)
[2021-07-03] MEDS: DOXYCYCLINE 100MG/250ML 250 ML IV SCH ×2 (02:32→13:28)
[2021-07-03] MEDS: ALBUTEROL SULF 2.5 MG/0.5ML(0.5%) NEB SOLN NEB SCH ×6 (02:37→22:32)
[2021-07-03] MEDS: IPRATROPIUM BROM 0.5 MG/2.5ML INH SOL NEB SCH ×6 (02:37→22:32)
[2021-07-03] MEDS: AMPICILLIN INJ 500 MG in SODIUM CHL 0.9% 50 ML IV SCH ×6 (06:00→23:27)
[2021-07-03] MEDS: BUDESONIDE (INHALATION) 0.5 MG/2 ML NEB NEB SCH ×2 (06:19→18:12)
[2021-07-03] MEDS: fentaNYL Drip 2500mCg/250mlNS 250 ML IV SCH ×2 (08:14→18:00)
[2021-07-03 08:48] LABS: Urine Bacteria NONE SEEN /hpf (None Seen); Urine Blood 2+ /uL (Negative); Urine Budding Yeast LOADED /hpf (None Seen); Urine Specific Gravity 1.019 (1.001-1.035); Urine WBC 15 /hpf (0 - 5)
[2021-07-03] MEDS: DexAMETHasone SOD PHOS 10MG/1ML VIAL INJ IV SCH (09:35)
[2021-07-03] MEDS: PANTOPRAZOLE 40 MG/10 ML VIAL INJ IV SCH (09:35)
[2021-07-03] MEDS: ZINC SULFATE 220mg CAP or TAB PO SCH (09:36)
[2021-07-03] MEDS: MULTIPLE VITAMIN TAB PO SCH (09:36)
[2021-07-03] MEDS: ASCORBIC ACID 1,000 MG TAB PO SCH (09:36)
[2021-07-03] MEDS: CHOLECALCIFEROL (VITD3) 2,000 UNIT CAP/TAB PO SCH (09:36)
[2021-07-03] MEDS: PROPOFOL 100 ML IV SCH (16:04)
[2021-07-03] MEDS: NOREPINEPHRINE 8 MG/250ML KIT 250 ML IV SCH (17:15)
[2021-07-03] MEDS: Nepro With Carb Steady 1 Liter Bottle GT SCH (18:11)
[2021-07-04] VITALS (101 sets, daily range): BP systolic 84–146; BP diastolic 33–55
[2021-07-04] MEDS: InsuLIN REG 1unit/0.01ml Soln (100units/ml) SC SCH ×4 (01:08→18:00)
[2021-07-04] MEDS: ACCU-CHEK COMFORT CURVE STRIP VI SCH ×4 (01:10→18:00)
[2021-07-04] MEDS: DOXYCYCLINE 100MG/250ML 250 ML IV SCH ×2 (01:10→13:00)
[2021-07-04] MEDS: IPRATROPIUM BROM 0.5 MG/2.5ML INH SOL NEB SCH ×6 (02:10→22:13)
[2021-07-04] MEDS: ALBUTEROL SULF 2.5 MG/0.5ML(0.5%) NEB SOLN NEB SCH ×5 (02:10→22:13)
[2021-07-04] MEDS: MIDAZOLAM DRIP 50 mg/50mL 50 ML IV SCH (02:30)
[2021-07-04 05:04] LABS: Basophils # (auto) 0 10 ^3/uL (0-0.2); Eosinophils # (auto) 0 10 ^3/uL (0-0.8); Lymphocytes # (auto) 0.9 10 ^3/uL (0.4-5.4); Monocytes # (auto) 0.5 10 ^3/uL (0-1.3); Monocytes % (auto) 3.3 % (0.0-12.0); Neutrophils # (auto) 13.4 10 ^3/uL (1.6-8.6); Neutrophils % (auto) 90.7 % (37.0-80.0); White Blood Cell 14.8 10^3/uL (4.4-10.8)
[2021-07-04 05:10] LABS: Basophils % (auto) 0.1 % (0.0-2.0); Hematocrit 26.3 % (36.0-46.0); Hemoglobin 8.9 g/dL (12.2-16.2); Lymphocytes % (auto) 5.9 % (10.0-50.0); Mean Corpuscular Hemoglobin 27.1 pg (28.0-32.0); Mean Corpuscular Hgb Conc. 33.7 g/dL (32.0-36.0); Mean Corpuscular Volume 80.4 fL (80.0-100.0); Red Blood Cells 3.27 10^6/uL (4.0-5.20); Red Cell Distribution Width 14.6 % (11.8-14.3)
[2021-07-04 05:26] LABS: Potassium 5.2 mmol/L (3.5-5.1)
[2021-07-04 05:39] LABS: Albumin 1.2 g/dL (3.4-5.0); BUN/Creatinine Ratio 57.1; Bilirubin, Total 0.3 mg/dL (0.2-1.0); Calcium 8.3 mg/dL (8.5-10.1); Magnesium 2.3 mg/dL (1.6-2.6); Total Protein 5.1 g/dL (6.4-8.2)
[2021-07-04] MEDS: BUDESONIDE (INHALATION) 0.5 MG/2 ML NEB NEB SCH ×2 (06:17→22:17)
[2021-07-04] MEDS: AMPICILLIN INJ 500 MG in SODIUM CHL 0.9% 50 ML IV SCH ×4 (08:05→23:29)
[2021-07-04] MEDS: METOCLOPRAMIDE HCL 5MG/ml INJ 2ml VIAL IV SCH (10:00)
[2021-07-04] MEDS: AMIODARONE HCL 200 MG TAB PO SCH ×2 (10:00→22:00)
[2021-07-04] MEDS ORDERED: FUROSEMIDE 40 MG/4 ML VIAL IV SCH (10:00)
[2021-07-04] MEDS: DexAMETHasone SOD PHOS 10MG/1ML VIAL INJ IV SCH (10:12)
[2021-07-04] MEDS: MULTIPLE VITAMIN TAB PO SCH (10:12)
[2021-07-04] MEDS: SODIUM CHLOR 0.9% PF (SALINE LOCK) 10ML VIAL/SYR IV SCH ×2 (10:12→23:28)
[2021-07-04] MEDS: CHOLECALCIFEROL (VITD3) 2,000 UNIT CAP/TAB PO SCH (10:12)
[2021-07-04] MEDS: PANTOPRAZOLE 40 MG/10 ML VIAL INJ IV SCH (10:12)
[2021-07-04] MEDS: ZINC SULFATE 220mg CAP or TAB PO SCH (10:12)
[2021-07-04] MEDS: ASCORBIC ACID 1,000 MG TAB PO SCH (10:13)
[2021-07-04] MEDS: ENOXAPARIN SOD 100 MG/1 ML SYRINGE SC SCH ×2 (10:13→23:29)
[2021-07-04] MEDS: PROPOFOL 100 ML IV SCH (16:06)
[2021-07-04] MEDS: NOREPINEPHRINE 8 MG/250ML KIT 250 ML IV SCH (17:15)
[2021-07-04] MEDS: FUROSEMIDE 40 MG/4 ML VIAL IV SCH (23:28)
[2021-07-04] MEDS: INSULIN LANTUS (GLARGINE) 1 /0.01ml (100units/ml) SC SCH (23:32)
[2021-07-05] VITALS (95 sets, daily range): BP systolic 87–142; BP diastolic 30–57
[2021-07-05] MEDS: METOCLOPRAMIDE HCL 5MG/ml INJ 2ml VIAL IV SCH ×2 (02:08→10:00)
[2021-07-05] MEDS: ACCU-CHEK COMFORT CURVE STRIP VI SCH ×4 (02:08→17:45)
[2021-07-05] MEDS: InsuLIN REG 1unit/0.01ml Soln (100units/ml) SC SCH ×4 (02:11→18:12)
[2021-07-05] MEDS: DOXYCYCLINE 100MG/250ML 250 ML IV SCH (02:12)
[2021-07-05] MEDS: ALBUTEROL SULF 2.5 MG/0.5ML(0.5%) NEB SOLN NEB SCH ×6 (02:13→22:50)
[2021-07-05] MEDS: IPRATROPIUM BROM 0.5 MG/2.5ML INH SOL NEB SCH ×6 (02:13→22:50)
[2021-07-05] MEDS: MIDAZOLAM DRIP 50 mg/50mL 50 ML IV SCH ×2 (02:13→10:05)
[2021-07-05] MEDS: NOREPINEPHRINE 8 MG/250ML KIT 250 ML IV SCH (02:58)
[2021-07-05] MEDS: BUDESONIDE (INHALATION) 0.5 MG/2 ML NEB NEB SCH ×2 (06:22→18:54)
[2021-07-05 07:29] LABS: Basophils # (auto) 0.1 10 ^3/uL (0-0.2); Eosinophils # (auto) 0 10 ^3/uL (0-0.8); Hemoglobin 8.5 g/dL (12.2-16.2); Monocytes # (auto) 0.6 10 ^3/uL (0-1.3); Red Cell Distribution Width 14.3 % (11.8-14.3)
[2021-07-05] MEDS: AMPICILLIN INJ 500 MG in SODIUM CHL 0.9% 50 ML IV SCH (07:30)
[2021-07-05 07:31] LABS: Basophils % (auto) 0.8 % (0.0-2.0); Hematocrit 25.5 % (36.0-46.0); Lymphocytes % (auto) 6.2 % (10.0-50.0); Mean Corpuscular Hemoglobin 26.8 pg (28.0-32.0); Mean Corpuscular Hgb Conc. 33.5 g/dL (32.0-36.0); Monocytes % (auto) 3.7 % (0.0-12.0); Neutrophils % (auto) 89.3 % (37.0-80.0); Red Blood Cells 3.19 10^6/uL (4.0-5.20); White Blood Cell 16.8 10^3/uL (4.4-10.8)
[2021-07-05] MEDS: FUROSEMIDE 40 MG/4 ML VIAL IV SCH ×2 (07:31→17:39)
[2021-07-05] MEDS: fentaNYL Drip 2500mCg/250mlNS 250 ML IV SCH (07:33)
[2021-07-05 07:44] LABS: Calcium 8.2 mg/dL (8.5-10.1); Potassium 4.5 mmol/L (3.5-5.1)
[2021-07-05] MEDS ORDERED: VANCOMYCIN PER PHARMACY 0 MG IV SCH (09:45)
[2021-07-05] MEDS: ZINC SULFATE 220mg CAP or TAB PO SCH (10:00)
[2021-07-05] MEDS: SODIUM CHLOR 0.9% PF (SALINE LOCK) 10ML VIAL/SYR IV SCH ×2 (10:00→22:32)
[2021-07-05] MEDS: ASCORBIC ACID 1,000 MG TAB PO SCH (10:00)
[2021-07-05] MEDS: MULTIPLE VITAMIN TAB PO SCH (10:00)
[2021-07-05] MEDS: PANTOPRAZOLE 40 MG/10 ML VIAL INJ IV SCH (10:00)
[2021-07-05] MEDS: AMIODARONE HCL 200 MG TAB PO SCH ×2 (10:00→22:00)
[2021-07-05] MEDS: ENOXAPARIN SOD 100 MG/1 ML SYRINGE SC SCH (10:00)
[2021-07-05] MEDS: CHOLECALCIFEROL (VITD3) 2,000 UNIT CAP/TAB PO SCH (10:00)
[2021-07-05] MEDS: DexAMETHasone SOD PHOS 10MG/1ML VIAL INJ IV SCH (10:00)
[2021-07-05] MEDS ORDERED: MEROPENEM 1GM IVPB 100 ML IV SCH (11:00)
[2021-07-05] MEDS ORDERED: PIPERACILLIN-TAZOB 3.375GM 100 ML IV SCH (12:00)
[2021-07-05] MEDS: PROPOFOL 100 ML IV SCH (17:15)
[2021-07-05] MEDS: SODIUM FERR GLUC 62.5MG/5ML 125 MG in SODIUM CHL 0.9% 100 ML IV SCH (18:13)
[2021-07-05] MEDS: Nepro With Carb Steady 1 Liter Bottle GT SCH (21:00)
[2021-07-05] MEDS: VANCOMYCIN 1GM/250ML 250 ML IV SCH (21:00)
[2021-07-05] MEDS: INSULIN LANTUS (GLARGINE) 1 /0.01ml (100units/ml) SC SCH (22:36)
[2021-07-06] VITALS (88 sets, daily range): BP systolic 82–163; BP diastolic 39–90
[2021-07-06] MEDS: IPRATROPIUM BROM 0.5 MG/2.5ML INH SOL NEB SCH ×6 (02:58→22:25)
[2021-07-06] MEDS: ALBUTEROL SULF 2.5 MG/0.5ML(0.5%) NEB SOLN NEB SCH ×6 (02:58→22:25)
[2021-07-06] MEDS: VANCOMYCIN 1GM/250ML 250 ML IV SCH ×2 (03:13→14:00)
[2021-07-06] MEDS: MIDAZOLAM DRIP 50 mg/50mL 50 ML IV SCH (03:14)
[2021-07-06] MEDS: InsuLIN REG 1unit/0.01ml Soln (100units/ml) SC SCH ×4 (03:21→17:46)
[2021-07-06] MEDS: fentaNYL Drip 2500mCg/250mlNS 250 ML IV SCH (03:21)
[2021-07-06] MEDS: METOCLOPRAMIDE HCL 5MG/ml INJ 2ml VIAL IV SCH ×3 (03:42→22:00)
[2021-07-06] MEDS: BUDESONIDE (INHALATION) 0.5 MG/2 ML NEB NEB SCH ×2 (06:03→22:25)
[2021-07-06 06:36] LABS: Eosinophils # (auto) 0 10 ^3/uL (0-0.8); Eosinophils % (auto) 0.1 % (0.0-7.0); Lymphocytes # (auto) 1.2 10 ^3/uL (0.4-5.4); Red Cell Distribution Width 14.2 % (11.8-14.3)
[2021-07-06 06:39] LABS: Basophils # (auto) 0 10 ^3/uL (0-0.2); Basophils % (auto) 0.2 % (0.0-2.0); Hematocrit 26.6 % (36.0-46.0); Hemoglobin 8.7 g/dL (12.2-16.2); Lymphocytes % (auto) 7.4 % (10.0-50.0); Mean Corpuscular Hemoglobin 25.8 pg (28.0-32.0); Mean Corpuscular Hgb Conc. 32.6 g/dL (32.0-36.0); Mean Corpuscular Volume 79.3 fL (80.0-100.0); Monocytes # (auto) 0.4 10 ^3/uL (0-1.3); Monocytes % (auto) 2.6 % (0.0-12.0); Neutrophils # (auto) 14.6 10 ^3/uL (1.6-8.6); Neutrophils % (auto) 89.7 % (37.0-80.0); Red Blood Cells 3.36 10^6/uL (4.0-5.20); White Blood Cell 16.3 10^3/uL (4.4-10.8)
[2021-07-06 07:00] LABS: BUN/Creatinine Ratio 78.5; Calcium 8.2 mg/dL (8.5-10.1)
[2021-07-06] MEDS: FUROSEMIDE 40 MG/4 ML VIAL IV SCH ×2 (08:32→17:32)
[2021-07-06] MEDS: ACCU-CHEK COMFORT CURVE STRIP VI SCH ×4 (08:43→17:44)
[2021-07-06] MEDS: PANTOPRAZOLE 40 MG/10 ML VIAL INJ IV SCH (09:46)
[2021-07-06] MEDS: SODIUM CHLOR 0.9% PF (SALINE LOCK) 10ML VIAL/SYR IV SCH ×2 (09:46→22:00)
[2021-07-06] MEDS: DexAMETHasone SOD PHOS 10MG/1ML VIAL INJ IV SCH (09:46)
[2021-07-06] MEDS: AMIODARONE HCL 200 MG TAB PO SCH ×2 (09:47→22:00)
[2021-07-06] MEDS: CHOLECALCIFEROL (VITD3) 2,000 UNIT CAP/TAB PO SCH (09:48)
[2021-07-06] MEDS: ENOXAPARIN SOD 40 MG/0.4 ML SYRINGE SC SCH (09:48)
[2021-07-06] MEDS: ASCORBIC ACID 1,000 MG TAB PO SCH (09:48)
[2021-07-06] MEDS: MULTIPLE VITAMIN TAB PO SCH (09:48)
[2021-07-06] MEDS ORDERED: IRON SUCROSE COMPLEX 200 MG in SODIUM CHL 0.9% 100 ML IV SCH (12:00)
[2021-07-06] MEDS: SODIUM FERR GLUC 62.5MG/5ML 125 MG in SODIUM CHL 0.9% 100 ML IV SCH (12:42)
[2021-07-06] MEDS ORDERED: FLEET MINERAL OIL ENEMA 133 ML PR ONE (12:45)
[2021-07-06] MEDS ORDERED: PIPERACILLIN-TAZO 4.5GM 100 ML IV SCH (14:00)
[2021-07-06] MEDS: PIPERACILLIN-TAZO 4.5GM 100 ML IV SCH ×2 (15:00→23:00)
[2021-07-06] MEDS: NOREPINEPHRINE 8 MG/250ML KIT 250 ML IV SCH (17:15)
[2021-07-06] MEDS: PROPOFOL 100 ML IV SCH (17:15)
[2021-07-06] MEDS: INSULIN LANTUS (GLARGINE) 1 /0.01ml (100units/ml) SC SCH (22:00)
[2021-07-07] VITALS (100 sets, daily range): BP systolic 72–180; BP diastolic 36–71
[2021-07-07] MEDS: VANCOMYCIN 1GM/250ML 250 ML IV SCH ×2 (02:00→14:00)
[2021-07-07] MEDS: IPRATROPIUM BROM 0.5 MG/2.5ML INH SOL NEB SCH ×6 (02:37→22:20)
[2021-07-07] MEDS: ALBUTEROL SULF 2.5 MG/0.5ML(0.5%) NEB SOLN NEB SCH ×6 (02:37→22:20)
[2021-07-07 04:34] LABS: Basophils # (auto) 0.1 10 ^3/uL (0-0.2); Basophils % (auto) 0.3 % (0.0-2.0); Eosinophils # (auto) 0 10 ^3/uL (0-0.8); Eosinophils % (auto) 0.1 % (0.0-7.0); White Blood Cell 19.6 10^3/uL (4.4-10.8)
[2021-07-07 04:54] LABS: Hematocrit 29.8 % (36.0-46.0); Hemoglobin 9.8 g/dL (12.2-16.2); Lymphocytes # (auto) 1.4 10 ^3/uL (0.4-5.4); Mean Corpuscular Hemoglobin 25.8 pg (28.0-32.0); Mean Corpuscular Volume 78.2 fL (80.0-100.0); Monocytes # (auto) 0.5 10 ^3/uL (0-1.3); Monocytes % (auto) 2.6 % (0.0-12.0); Neutrophils # (auto) 17.6 10 ^3/uL (1.6-8.6); Red Blood Cells 3.81 10^6/uL (4.0-5.20); Red Cell Distribution Width 13.7 % (11.8-14.3)
[2021-07-07 04:55] LABS: BUN/Creatinine Ratio 66.7; Calcium 8.7 mg/dL (8.5-10.1); Potassium 3.9 mmol/L (3.5-5.1)
[2021-07-07] MEDS: ACCU-CHEK COMFORT CURVE STRIP VI SCH ×3 (05:22→12:06)
[2021-07-07] MEDS: InsuLIN REG 1unit/0.01ml Soln (100units/ml) SC SCH ×3 (05:23→11:58)
[2021-07-07] MEDS: NOREPINEPHRINE 8 MG/250ML KIT 250 ML IV SCH (06:00)
[2021-07-07] MEDS: PIPERACILLIN-TAZO 4.5GM 100 ML IV SCH ×3 (06:30→23:29)
[2021-07-07] MEDS: BUDESONIDE (INHALATION) 0.5 MG/2 ML NEB NEB SCH ×2 (08:52→22:22)
[2021-07-07] MEDS: METOCLOPRAMIDE HCL 5MG/ml INJ 2ml VIAL IV SCH ×2 (10:02→21:42)
[2021-07-07] MEDS: PANTOPRAZOLE 40 MG/10 ML VIAL INJ IV SCH (10:02)
[2021-07-07] MEDS: ASCORBIC ACID 1,000 MG TAB PO SCH (10:03)
[2021-07-07] MEDS: CHOLECALCIFEROL (VITD3) 2,000 UNIT CAP/TAB PO SCH (10:03)
[2021-07-07] MEDS: MULTIPLE VITAMIN TAB PO SCH (10:03)
[2021-07-07] MEDS: SODIUM CHLOR 0.9% PF (SALINE LOCK) 10ML VIAL/SYR IV SCH ×2 (10:03→21:42)
[2021-07-07] MEDS: AMIODARONE HCL 200 MG TAB PO SCH ×2 (10:03→21:43)
[2021-07-07] MEDS: ENOXAPARIN SOD 40 MG/0.4 ML SYRINGE SC SCH (10:04)
[2021-07-07] MEDS: SODIUM FERR GLUC 62.5MG/5ML 125 MG in SODIUM CHL 0.9% 100 ML IV SCH (11:56)
[2021-07-07] MEDS: INSULIN LANTUS (GLARGINE) 1 /0.01ml (100units/ml) SC SCH (21:44)
[2021-07-07] MEDS: fentaNYL Drip 2500mCg/250mlNS 250 ML IV SCH (21:44)
[2021-07-07] MEDS: MIDAZOLAM DRIP 50 mg/50mL 50 ML IV SCH (21:46)
[2021-07-08] VITALS (93 sets, daily range): BP systolic 64–167; BP diastolic 31–70
[2021-07-08] MEDS: PROPOFOL 100 ML IV SCH ×2 (00:38→17:15)
[2021-07-08] MEDS: NOREPINEPHRINE 8 MG/250ML KIT 250 ML IV SCH (00:38)
[2021-07-08] MEDS: ALBUTEROL SULF 2.5 MG/0.5ML(0.5%) NEB SOLN NEB SCH ×6 (02:31→21:56)
[2021-07-08] MEDS: IPRATROPIUM BROM 0.5 MG/2.5ML INH SOL NEB SCH ×6 (02:32→21:56)
[2021-07-08] MEDS: ACCU-CHEK COMFORT CURVE STRIP VI SCH ×4 (06:10→18:00)
[2021-07-08] MEDS: InsuLIN REG 1unit/0.01ml Soln (100units/ml) SC SCH ×4 (06:11→18:00)
[2021-07-08] MEDS: PIPERACILLIN-TAZO 4.5GM 100 ML IV SCH ×3 (06:11→23:02)
[2021-07-08 06:28] LABS: Eosinophils # (auto) 0.3 10 ^3/uL (0-0.8); Hemoglobin 9.1 g/dL (12.2-16.2)
[2021-07-08 06:33] LABS: Basophils # (auto) 0.1 10 ^3/uL (0-0.2); Basophils % (auto) 0.3 % (0.0-2.0); Eosinophils % (auto) 1.5 % (0.0-7.0); Hematocrit 27.2 % (36.0-46.0); Lymphocytes # (auto) 3.3 10 ^3/uL (0.4-5.4); Lymphocytes % (auto) 16.8 % (10.0-50.0); Mean Corpuscular Hemoglobin 26.6 pg (28.0-32.0); Mean Corpuscular Hgb Conc. 33.4 g/dL (32.0-36.0); Mean Corpuscular Volume 79.6 fL (80.0-100.0); Monocytes # (auto) 0.5 10 ^3/uL (0-1.3); Monocytes % (auto) 2.7 % (0.0-12.0); Neutrophils # (auto) 15.3 10 ^3/uL (1.6-8.6); Neutrophils % (auto) 78.7 % (37.0-80.0); Red Blood Cells 3.42 10^6/uL (4.0-5.20); Red Cell Distribution Width 13.9 % (11.8-14.3); White Blood Cell 19.4 10^3/uL (4.4-10.8)
[2021-07-08] MEDS: BUDESONIDE (INHALATION) 0.5 MG/2 ML NEB NEB SCH ×2 (06:38→18:27)
[2021-07-08 06:40] LABS: Potassium 4.5 mmol/L (3.5-5.1)
[2021-07-08 07:13] LABS: BUN/Creatinine Ratio 56.3; Calcium 8.6 mg/dL (8.5-10.1)
[2021-07-08] MEDS: METOCLOPRAMIDE HCL 5MG/ml INJ 2ml VIAL IV SCH ×2 (10:25→22:04)
[2021-07-08] MEDS: PANTOPRAZOLE 40 MG/10 ML VIAL INJ IV SCH (10:25)
[2021-07-08] MEDS: AMIODARONE HCL 200 MG TAB PO SCH ×2 (10:25→22:05)
[2021-07-08] MEDS: SODIUM CHLOR 0.9% PF (SALINE LOCK) 10ML VIAL/SYR IV SCH ×2 (10:26→22:05)
[2021-07-08] MEDS: ASCORBIC ACID 1,000 MG TAB PO SCH (10:26)
[2021-07-08] MEDS: MULTIPLE VITAMIN TAB PO SCH (10:26)
[2021-07-08] MEDS: CHOLECALCIFEROL (VITD3) 2,000 UNIT CAP/TAB PO SCH (10:26)
[2021-07-08] MEDS: ENOXAPARIN SOD 40 MG/0.4 ML SYRINGE SC SCH (10:26)
[2021-07-08] MEDS: SODIUM FERR GLUC 62.5MG/5ML 125 MG in SODIUM CHL 0.9% 100 ML IV SCH (12:00)
[2021-07-08] MEDS: MIDAZOLAM DRIP 50 mg/50mL 50 ML IV SCH (17:15)
[2021-07-08] MEDS: fentaNYL Drip 2500mCg/250mlNS 250 ML IV SCH (18:51)
[2021-07-08] MEDS: INSULIN LANTUS (GLARGINE) 1 /0.01ml (100units/ml) SC SCH (22:37)
[2021-07-09] VITALS (87 sets, daily range): BP systolic 91–159; BP diastolic 35–63
[2021-07-09] MEDS: InsuLIN REG 1unit/0.01ml Soln (100units/ml) SC SCH ×4 (02:22→18:00)
[2021-07-09] MEDS: ALBUTEROL SULF 2.5 MG/0.5ML(0.5%) NEB SOLN NEB SCH ×6 (02:33→22:19)
[2021-07-09] MEDS: IPRATROPIUM BROM 0.5 MG/2.5ML INH SOL NEB SCH ×6 (02:33→22:19)
[2021-07-09] MEDS: NOREPINEPHRINE 8 MG/250ML KIT 250 ML IV SCH (04:29)
[2021-07-09] MEDS: MIDAZOLAM DRIP 50 mg/50mL 50 ML IV SCH (04:29)
[2021-07-09 05:35] LABS: Eosinophils # (auto) 0.3 10 ^3/uL (0-0.8); Eosinophils % (auto) 1.7 % (0.0-7.0); Hemoglobin 9.2 g/dL (12.2-16.2); Lymphocytes % (auto) 11.4 % (10.0-50.0); Mean Corpuscular Hemoglobin 26.1 pg (28.0-32.0); Monocytes # (auto) 0.3 10 ^3/uL (0-1.3); White Blood Cell 17.4 10^3/uL (4.4-10.8)
[2021-07-09 05:36] LABS: Basophils # (auto) 0.1 10 ^3/uL (0-0.2); Basophils % (auto) 0.4 % (0.0-2.0); Hematocrit 27.7 % (36.0-46.0); Mean Corpuscular Hgb Conc. 33.2 g/dL (32.0-36.0); Mean Corpuscular Volume 78.6 fL (80.0-100.0); Monocytes % (auto) 1.6 % (0.0-12.0); Neutrophils # (auto) 14.8 10 ^3/uL (1.6-8.6); Neutrophils % (auto) 84.9 % (37.0-80.0); Red Blood Cells 3.52 10^6/uL (4.0-5.20); Red Cell Distribution Width 14.1 % (11.8-14.3)
[2021-07-09] MEDS: ACCU-CHEK COMFORT CURVE STRIP VI SCH ×5 (05:49→23:34)
[2021-07-09 05:52] LABS: Calcium 8.2 mg/dL (8.5-10.1); Potassium 3.3 mmol/L (3.5-5.1)
[2021-07-09] MEDS: BUDESONIDE (INHALATION) 0.5 MG/2 ML NEB NEB SCH ×3 (06:00→19:30)
[2021-07-09] MEDS: PIPERACILLIN-TAZO 4.5GM 100 ML IV SCH (06:21)
[2021-07-09] MEDS ORDERED: BACTRIM 5MG/KG Q8HR PER RX 0 ML IV SCH (08:15)
[2021-07-09] MEDS: PANTOPRAZOLE 40 MG/10 ML VIAL INJ IV SCH (09:40)
[2021-07-09] MEDS: METOCLOPRAMIDE HCL 5MG/ml INJ 2ml VIAL IV SCH ×2 (09:40→23:33)
[2021-07-09] MEDS: ASCORBIC ACID 1,000 MG TAB PO SCH (09:41)
[2021-07-09] MEDS: AMIODARONE HCL 200 MG TAB PO SCH ×2 (09:41→23:33)
[2021-07-09] MEDS: MULTIPLE VITAMIN TAB PO SCH (09:41)
[2021-07-09] MEDS: ENOXAPARIN SOD 40 MG/0.4 ML SYRINGE SC SCH (09:41)
[2021-07-09] MEDS: CHOLECALCIFEROL (VITD3) 2,000 UNIT CAP/TAB PO SCH (09:41)
[2021-07-09] MEDS: SODIUM CHLOR 0.9% PF (SALINE LOCK) 10ML VIAL/SYR IV SCH ×2 (09:41→23:33)
[2021-07-09] MEDS: ZINC SULFATE 220mg CAP or TAB PO SCH (10:10)
[2021-07-09] MEDS ORDERED: POTASSIUM CHL 20MEQ/50ML 50 ML IV ONE (11:45)
[2021-07-09] MEDS ORDERED: SULFAMETH-TRIMETH 80/16MG-ML 30 ML in D5W 5% 500 ML IV SCH (12:00)
[2021-07-09] MEDS: SULFAMETH-TRIMETH 80/16MG-ML 25 ML in D5W 5% 500 ML IV SCH ×2 (12:15→21:27)
[2021-07-09] MEDS ORDERED: POTASSIUM CHL 20MEQ/100ML 100 ML IV ONE (12:30)
[2021-07-09] MEDS: fentaNYL Drip 2500mCg/250mlNS 250 ML IV SCH (14:13)
[2021-07-09] MEDS: PROPOFOL 100 ML IV SCH (17:15)
[2021-07-09] MEDS: INSULIN LANTUS (GLARGINE) 1 /0.01ml (100units/ml) SC SCH (23:34)
[2021-07-10] VITALS (99 sets, daily range): BP systolic 64–147; BP diastolic 25–56
[2021-07-10] MEDS: InsuLIN REG 1unit/0.01ml Soln (100units/ml) SC SCH ×4 (00:08→18:00)
[2021-07-10] MEDS: IPRATROPIUM BROM 0.5 MG/2.5ML INH SOL NEB SCH ×6 (02:11→21:58)
[2021-07-10] MEDS: ALBUTEROL SULF 2.5 MG/0.5ML(0.5%) NEB SOLN NEB SCH ×6 (02:11→21:58)
[2021-07-10] MEDS: SULFAMETH-TRIMETH 80/16MG-ML 25 ML in D5W 5% 500 ML IV SCH ×3 (04:23→20:14)
[2021-07-10 06:12] LABS: Basophils # (auto) 0.1 10 ^3/uL (0-0.2); Basophils % (auto) 0.3 % (0.0-2.0); Eosinophils # (auto) 0.3 10 ^3/uL (0-0.8); Mean Corpuscular Hgb Conc. 33.2 g/dL (32.0-36.0); Monocytes # (auto) 0.3 10 ^3/uL (0-1.3)
[2021-07-10 06:14] LABS: Eosinophils % (auto) 1.5 % (0.0-7.0); Hematocrit 23.8 % (36.0-46.0); Hemoglobin 7.9 g/dL (12.2-16.2); Lymphocytes # (auto) 1.2 10 ^3/uL (0.4-5.4); Lymphocytes % (auto) 6.8 % (10.0-50.0); Mean Corpuscular Hemoglobin 26.5 pg (28.0-32.0); Mean Corpuscular Volume 79.7 fL (80.0-100.0); Monocytes % (auto) 1.5 % (0.0-12.0); Neutrophils # (auto) 16.2 10 ^3/uL (1.6-8.6); Neutrophils % (auto) 89.9 % (37.0-80.0); Red Blood Cells 2.99 10^6/uL (4.0-5.20); Red Cell Distribution Width 14.4 % (11.8-14.3); White Blood Cell 18.1 10^3/uL (4.4-10.8)
[2021-07-10] MEDS: ACCU-CHEK COMFORT CURVE STRIP VI SCH ×3 (06:17→18:00)
[2021-07-10 06:21] LABS: Potassium 3.7 mmol/L (3.5-5.1)
[2021-07-10 06:22] LABS: BUN/Creatinine Ratio 29.4; Calcium 7.9 mg/dL (8.5-10.1)
[2021-07-10] MEDS: BUDESONIDE (INHALATION) 0.5 MG/2 ML NEB NEB SCH ×2 (07:42→18:42)
[2021-07-10] MEDS: PANTOPRAZOLE 40 MG/10 ML VIAL INJ IV SCH (09:10)
[2021-07-10] MEDS: ZINC SULFATE 220mg CAP or TAB PO SCH (09:10)
[2021-07-10] MEDS: ASCORBIC ACID 1,000 MG TAB PO SCH (09:11)
[2021-07-10] MEDS: MULTIPLE VITAMIN TAB PO SCH (09:11)
[2021-07-10] MEDS: AMIODARONE HCL 200 MG TAB PO SCH ×2 (09:11→21:56)
[2021-07-10] MEDS: ENOXAPARIN SOD 40 MG/0.4 ML SYRINGE SC SCH (09:11)
[2021-07-10] MEDS: CHOLECALCIFEROL (VITD3) 2,000 UNIT CAP/TAB PO SCH (09:11)
[2021-07-10] MEDS: SODIUM CHLOR 0.9% PF (SALINE LOCK) 10ML VIAL/SYR IV SCH ×2 (11:59→21:56)
[2021-07-10] MEDS: NOREPINEPHRINE 8 MG/250ML KIT 250 ML IV SCH (11:59)
[2021-07-10] MEDS: fentaNYL Drip 2500mCg/250mlNS 250 ML IV SCH (17:02)
[2021-07-10] MEDS: METOCLOPRAMIDE HCL 5MG/ml INJ 2ml VIAL IV SCH ×2 (17:11→21:56)
[2021-07-10] MEDS: PROPOFOL 100 ML IV SCH (17:11)
[2021-07-10] MEDS: MIDAZOLAM DRIP 50 mg/50mL 50 ML IV SCH (17:11)
[2021-07-10] MEDS: INSULIN LANTUS (GLARGINE) 1 /0.01ml (100units/ml) SC SCH (21:56)
[2021-07-11] VITALS (101 sets, daily range): BP systolic 91–136; BP diastolic 23–67
[2021-07-11] MEDS: NOREPINEPHRINE 8 MG/250ML KIT 250 ML IV SCH ×2 (00:11→17:32)
[2021-07-11] MEDS: ACCU-CHEK COMFORT CURVE STRIP VI SCH ×4 (00:45→18:18)
[2021-07-11] MEDS: InsuLIN REG 1unit/0.01ml Soln (100units/ml) SC SCH ×4 (00:48→18:00)
[2021-07-11] MEDS: MIDAZOLAM DRIP 50 mg/50mL 50 ML IV SCH ×3 (00:58→17:32)
[2021-07-11] MEDS: IPRATROPIUM BROM 0.5 MG/2.5ML INH SOL NEB SCH ×6 (02:29→22:32)
[2021-07-11] MEDS: ALBUTEROL SULF 2.5 MG/0.5ML(0.5%) NEB SOLN NEB SCH ×6 (02:29→22:32)
[2021-07-11] MEDS: SULFAMETH-TRIMETH 80/16MG-ML 25 ML in D5W 5% 500 ML IV SCH ×3 (04:00→19:48)
[2021-07-11] MEDS: fentaNYL Drip 2500mCg/250mlNS 250 ML IV SCH (05:07)
[2021-07-11] MEDS: BUDESONIDE (INHALATION) 0.5 MG/2 ML NEB NEB SCH ×2 (05:57→18:44)
[2021-07-11 07:17] LABS: Basophils # (auto) 0 10 ^3/uL (0-0.2); Basophils % (auto) 0.2 % (0.0-2.0); Lymphocytes # (auto) 0.8 10 ^3/uL (0.4-5.4); Mean Corpuscular Hgb Conc. 33.3 g/dL (32.0-36.0); Monocytes # (auto) 0.4 10 ^3/uL (0-1.3)
[2021-07-11 07:19] LABS: Eosinophils # (auto) 0.3 10 ^3/uL (0-0.8); Eosinophils % (auto) 1.4 % (0.0-7.0); Hematocrit 25.1 % (36.0-46.0); Hemoglobin 8.4 g/dL (12.2-16.2); Lymphocytes % (auto) 4.1 % (10.0-50.0); Mean Corpuscular Hemoglobin 26.6 pg (28.0-32.0); Monocytes % (auto) 2.1 % (0.0-12.0); Neutrophils % (auto) 92.2 % (37.0-80.0); Red Blood Cells 3.14 10^6/uL (4.0-5.20); Red Cell Distribution Width 14.3 % (11.8-14.3); White Blood Cell 19.5 10^3/uL (4.4-10.8)
[2021-07-11 07:32] LABS: BUN/Creatinine Ratio 24.7; Calcium 8.1 mg/dL (8.5-10.1); Potassium 4.2 mmol/L (3.5-5.1)
[2021-07-11] MEDS: CHOLECALCIFEROL (VITD3) 2,000 UNIT CAP/TAB PO SCH (09:33)
[2021-07-11] MEDS: PANTOPRAZOLE 40 MG/10 ML VIAL INJ IV SCH (09:33)
[2021-07-11] MEDS: MULTIPLE VITAMIN TAB PO SCH (09:33)
[2021-07-11] MEDS: AMIODARONE HCL 200 MG TAB PO SCH ×2 (09:33→22:12)
[2021-07-11] MEDS: ZINC SULFATE 220mg CAP or TAB PO SCH (09:33)
[2021-07-11] MEDS: ASCORBIC ACID 1,000 MG TAB PO SCH (09:33)
[2021-07-11] MEDS: SODIUM CHLOR 0.9% PF (SALINE LOCK) 10ML VIAL/SYR IV SCH ×2 (09:33→22:12)
[2021-07-11] MEDS: ENOXAPARIN SOD 40 MG/0.4 ML SYRINGE SC SCH (09:34)
[2021-07-11] MEDS: METOCLOPRAMIDE HCL 5MG/ml INJ 2ml VIAL IV SCH ×2 (10:00→22:12)
[2021-07-11] MEDS: PROPOFOL 100 ML IV SCH (17:15)
[2021-07-11] MEDS ORDERED: Glucerna 1.2 Cal 1Liter BOTTLE GT SCH (18:15)
[2021-07-11] MEDS: INSULIN LANTUS (GLARGINE) 1 /0.01ml (100units/ml) SC SCH (22:00)
[2021-07-12] VITALS (101 sets, daily range): BP systolic 84–132; BP diastolic 34–52
[2021-07-12] MEDS: ALBUTEROL SULF 2.5 MG/0.5ML(0.5%) NEB SOLN NEB SCH ×6 (02:08→22:15)
[2021-07-12] MEDS: IPRATROPIUM BROM 0.5 MG/2.5ML INH SOL NEB SCH ×6 (02:08→22:15)
[2021-07-12 04:00] LABS: Hemoglobin 7.5 g/dL (12.2-16.2); Nucleated Red Blood Cells % 0.1 %
[2021-07-12 04:01] LABS: Basophils # (auto) 0.1 10 ^3/uL (0-0.2); Basophils % (auto) 0.6 % (0.0-2.0); Eosinophils # (auto) 0.4 10 ^3/uL (0-0.8); Eosinophils % (auto) 1.8 % (0.0-7.0); Hematocrit 22.3 % (36.0-46.0); Lymphocytes % (auto) 4.8 % (10.0-50.0); Mean Corpuscular Hemoglobin 26.7 pg (28.0-32.0); Mean Corpuscular Hgb Conc. 33.7 g/dL (32.0-36.0); Mean Corpuscular Volume 79.3 fL (80.0-100.0); Monocytes # (auto) 0.5 10 ^3/uL (0-1.3); Monocytes % (auto) 2.5 % (0.0-12.0); Neutrophils # (auto) 18.1 10 ^3/uL (1.6-8.6); Neutrophils % (auto) 90.3 % (37.0-80.0); Red Blood Cells 2.82 10^6/uL (4.0-5.20); Red Cell Distribution Width 14.2 % (11.8-14.3); White Blood Cell 20.1 10^3/uL (4.4-10.8)
[2021-07-12] MEDS: SULFAMETH-TRIMETH 80/16MG-ML 25 ML in D5W 5% 500 ML IV SCH ×3 (04:13→19:43)
[2021-07-12 04:15] LABS: BUN/Creatinine Ratio 26.6; Calcium 7.7 mg/dL (8.5-10.1); Potassium 4.3 mmol/L (3.5-5.1)
[2021-07-12] MEDS: ACCU-CHEK COMFORT CURVE STRIP VI SCH ×5 (06:00→23:33)
[2021-07-12] MEDS: InsuLIN REG 1unit/0.01ml Soln (100units/ml) SC SCH ×5 (06:00→23:32)
[2021-07-12] MEDS: BUDESONIDE (INHALATION) 0.5 MG/2 ML NEB NEB SCH ×2 (06:05→22:15)
[2021-07-12] MEDS: CHOLECALCIFEROL (VITD3) 2,000 UNIT CAP/TAB PO SCH (09:37)
[2021-07-12] MEDS: METOCLOPRAMIDE HCL 5MG/ml INJ 2ml VIAL IV SCH ×2 (09:37→21:52)
[2021-07-12] MEDS: AMIODARONE HCL 200 MG TAB PO SCH ×3 (09:37→21:53)
[2021-07-12] MEDS: ENOXAPARIN SOD 40 MG/0.4 ML SYRINGE SC SCH (09:37)
[2021-07-12] MEDS: MULTIPLE VITAMIN TAB PO SCH (09:37)
[2021-07-12] MEDS: ZINC SULFATE 220mg CAP or TAB PO SCH (09:37)
[2021-07-12] MEDS: PANTOPRAZOLE 40 MG/10 ML VIAL INJ IV SCH (09:37)
[2021-07-12] MEDS: ASCORBIC ACID 1,000 MG TAB PO SCH (09:37)
[2021-07-12] MEDS: SODIUM CHLOR 0.9% PF (SALINE LOCK) 10ML VIAL/SYR IV SCH ×2 (09:38→21:53)
[2021-07-12] MEDS: MIDAZOLAM DRIP 50 mg/50mL 50 ML IV SCH (10:45)
[2021-07-12] MEDS ORDERED: FUROSEMIDE 20 MG/2 ML VIAL IV ONE ×2 (11:00→22:00)
[2021-07-12] MEDS ORDERED: SODIUM CHLORIDE 0.9% 1,000 ML IV ONE (11:00)
[2021-07-12] MEDS: NOREPINEPHRINE 8 MG/250ML KIT 250 ML IV SCH (13:12)
[2021-07-12] MEDS: fentaNYL Drip 2500mCg/250mlNS 250 ML IV SCH (16:05)
[2021-07-12] MEDS: PROPOFOL 100 ML IV SCH (17:15)
[2021-07-12] MEDS ORDERED: ALBUTEROL SULF 2.5 MG/0.5ML(0.5%) NEB SOLN ONE (22:15)
[2021-07-12] MEDS ORDERED: BUDESONIDE (INHALATION) 0.5 MG/2 ML NEB ONE (22:15)
[2021-07-13] VITALS (104 sets, daily range): BP systolic 88–135; BP diastolic 29–50
[2021-07-13] MEDS: ALBUTEROL SULF 2.5 MG/0.5ML(0.5%) NEB SOLN NEB SCH ×6 (02:00→22:26)
[2021-07-13] MEDS: IPRATROPIUM BROM 0.5 MG/2.5ML INH SOL NEB SCH ×6 (02:00→22:26)
[2021-07-13] MEDS: SULFAMETH-TRIMETH 80/16MG-ML 25 ML in D5W 5% 500 ML IV SCH ×3 (04:10→19:49)
[2021-07-13 05:12] LABS: Basophils # (auto) 0 10 ^3/uL (0-0.2); Basophils % (auto) 0.1 % (0.0-2.0); Eosinophils % (auto) 0.3 % (0.0-7.0); Hemoglobin 7.3 g/dL (12.2-16.2); Neutrophils % (auto) 94.7 % (37.0-80.0)
[2021-07-13 05:13] LABS: Eosinophils # (auto) 0.1 10 ^3/uL (0-0.8); Hematocrit 22.3 % (36.0-46.0); Lymphocytes # (auto) 0.3 10 ^3/uL (0.4-5.4); Lymphocytes % (auto) 1.8 % (10.0-50.0); Mean Corpuscular Hemoglobin 26.3 pg (28.0-32.0); Mean Corpuscular Hgb Conc. 32.8 g/dL (32.0-36.0); Mean Corpuscular Volume 80.2 fL (80.0-100.0); Monocytes # (auto) 0.6 10 ^3/uL (0-1.3); Monocytes % (auto) 3.1 % (0.0-12.0); Neutrophils # (auto) 17.7 10 ^3/uL (1.6-8.6); Red Blood Cells 2.78 10^6/uL (4.0-5.20); Red Cell Distribution Width 14.7 % (11.8-14.3); White Blood Cell 18.7 10^3/uL (4.4-10.8)
[2021-07-13 05:28] LABS: Potassium 4.8 mmol/L (3.5-5.1)
[2021-07-13 05:30] LABS: BUN/Creatinine Ratio 24.2
[2021-07-13] MEDS: InsuLIN REG 1unit/0.01ml Soln (100units/ml) SC SCH ×4 (05:53→23:21)
[2021-07-13] MEDS: ACCU-CHEK COMFORT CURVE STRIP VI SCH ×4 (05:53→23:20)
[2021-07-13] MEDS: BUDESONIDE (INHALATION) 0.5 MG/2 ML NEB NEB SCH ×2 (06:26→18:53)
[2021-07-13] MEDS: PANTOPRAZOLE 40 MG/10 ML VIAL INJ IV SCH (09:44)
[2021-07-13] MEDS: MULTIPLE VITAMIN TAB PO SCH (09:44)
[2021-07-13] MEDS: ZINC SULFATE 220mg CAP or TAB PO SCH (09:44)
[2021-07-13] MEDS: ASCORBIC ACID 1,000 MG TAB PO SCH (09:44)
[2021-07-13] MEDS: METOCLOPRAMIDE HCL 5MG/ml INJ 2ml VIAL IV SCH ×2 (09:44→21:35)
[2021-07-13] MEDS: CHOLECALCIFEROL (VITD3) 2,000 UNIT CAP/TAB PO SCH (09:44)
[2021-07-13] MEDS: AMIODARONE HCL 200 MG TAB PO SCH ×2 (09:45→21:36)
[2021-07-13] MEDS: ENOXAPARIN SOD 40 MG/0.4 ML SYRINGE SC SCH (09:46)
[2021-07-13] MEDS: SODIUM CHLOR 0.9% PF (SALINE LOCK) 10ML VIAL/SYR IV SCH ×2 (09:46→21:36)
[2021-07-13] MEDS: MIDAZOLAM DRIP 50 mg/50mL 50 ML IV SCH (12:13)
[2021-07-13] MEDS: fentaNYL Drip 2500mCg/250mlNS 250 ML IV SCH (15:34)
[2021-07-13] MEDS: PROPOFOL 100 ML IV SCH (17:15)
[2021-07-13] MEDS: NOREPINEPHRINE 8 MG/250ML KIT 250 ML IV SCH (18:29)
[2021-07-13] MEDS: DOPamine 1600MCG/ML D5W 250 ML IV SCH (19:06)
[2021-07-13] MEDS: FUROSEMIDE INJECTION 100 MG in D5W 5% 100 ML IV SCH (19:07)
[2021-07-13 20:13] LABS: Creatinine, Urine 87 mg/dL (30.0-125.0); Sodium Urine 10 mmol/L (40-220)
[2021-07-13 20:13] LABS: % Iron Saturation 17.6 % (15-50)
[2021-07-13 20:21] LABS: Folate (Folic Acid) 9.65 ng/mL (5.38-24)
[2021-07-14] VITALS (100 sets, daily range): BP systolic 96–133; BP diastolic 34–51
[2021-07-14] MEDS: PROPOFOL 100 ML IV SCH (00:01)
[2021-07-14] MEDS ORDERED: POLYETHYLENE GLYCOL 17 GM PWDR PO ONE (00:45)
[2021-07-14] MEDS: IPRATROPIUM BROM 0.5 MG/2.5ML INH SOL NEB SCH ×5 (02:19→21:33)
[2021-07-14] MEDS: ALBUTEROL SULF 2.5 MG/0.5ML(0.5%) NEB SOLN NEB SCH ×4 (02:19→21:33)
[2021-07-14 02:58] LABS: Eosinophils # (auto) 0.1 10 ^3/uL (0-0.8); Hemoglobin 7.4 g/dL (12.2-16.2); Lymphocytes # (auto) 0.6 10 ^3/uL (0.4-5.4); Mean Corpuscular Hemoglobin 27.2 pg (28.0-32.0); Mean Corpuscular Hgb Conc. 34.1 g/dL (32.0-36.0); Monocytes # (auto) 0.6 10 ^3/uL (0-1.3); Neutrophils % (auto) 91.8 % (37.0-80.0)
[2021-07-14 02:59] LABS: Basophils # (auto) 0 10 ^3/uL (0-0.2); Basophils % (auto) 0.2 % (0.0-2.0); Eosinophils % (auto) 0.5 % (0.0-7.0); Hematocrit 21.6 % (36.0-46.0); Lymphocytes % (auto) 3.8 % (10.0-50.0); Mean Corpuscular Volume 79.7 fL (80.0-100.0); Monocytes % (auto) 3.7 % (0.0-12.0); Neutrophils # (auto) 15.4 10 ^3/uL (1.6-8.6); Red Blood Cells 2.71 10^6/uL (4.0-5.20); Red Cell Distribution Width 14.8 % (11.8-14.3); White Blood Cell 16.7 10^3/uL (4.4-10.8)
[2021-07-14 03:05] LABS: Calcium 7.6 mg/dL (8.5-10.1); Potassium 4.8 mmol/L (3.5-5.1)
[2021-07-14 03:11] LABS: BUN/Creatinine Ratio 23.4
[2021-07-14] MEDS: SULFAMETH-TRIMETH 80/16MG-ML 25 ML in D5W 5% 500 ML IV SCH ×3 (04:00→19:31)
[2021-07-14] MEDS: FUROSEMIDE INJECTION 100 MG in D5W 5% 100 ML IV SCH ×5 (04:30→22:00)
[2021-07-14] MEDS: InsuLIN REG 1unit/0.01ml Soln (100units/ml) SC SCH ×4 (06:00→23:58)
[2021-07-14] MEDS: ACCU-CHEK COMFORT CURVE STRIP VI SCH ×4 (06:00→23:58)
[2021-07-14] MEDS ORDERED: FUROSEMIDE INJECTION 100 MG in D5W 5% 100 ML IV SCH (08:00)
[2021-07-14] MEDS ORDERED: ALBUMIN 25% 100 ML IV ONE (08:45)
[2021-07-14 09:08] LABS: BUN/Creatinine Ratio 24.1; Calcium 7.9 mg/dL (8.5-10.1); Potassium 4.9 mmol/L (3.5-5.1)
[2021-07-14] MEDS: BUDESONIDE (INHALATION) 0.5 MG/2 ML NEB NEB SCH ×2 (09:57→21:33)
[2021-07-14] MEDS: MULTIPLE VITAMIN TAB PO SCH (10:00)
[2021-07-14] MEDS: SODIUM CHLOR 0.9% PF (SALINE LOCK) 10ML VIAL/SYR IV SCH ×2 (10:00→22:26)
[2021-07-14] MEDS: PANTOPRAZOLE 40 MG/10 ML VIAL INJ IV SCH (10:00)
[2021-07-14] MEDS: CHOLECALCIFEROL (VITD3) 2,000 UNIT CAP/TAB PO SCH (10:00)
[2021-07-14] MEDS: METOCLOPRAMIDE HCL 5MG/ml INJ 2ml VIAL IV SCH ×2 (10:00→22:26)
[2021-07-14] MEDS: ZINC SULFATE 220mg CAP or TAB PO SCH (10:00)
[2021-07-14] MEDS: ENOXAPARIN SOD 40 MG/0.4 ML SYRINGE SC SCH (10:00)
[2021-07-14] MEDS: AMIODARONE HCL 200 MG TAB PO SCH ×2 (10:00→22:27)
[2021-07-14] MEDS: ASCORBIC ACID 1,000 MG TAB PO SCH (10:00)
[2021-07-14] MEDS: MIDAZOLAM DRIP 50 mg/50mL 50 ML IV SCH (17:15)
[2021-07-14] MEDS: fentaNYL Drip 2500mCg/250mlNS 250 ML IV SCH (17:15)
[2021-07-14] MEDS: DOPamine 1600MCG/ML D5W 250 ML IV SCH (18:30)
[2021-07-15] VITALS (41 sets, daily range): BP systolic 95–126; BP diastolic 36–48
[2021-07-15] MEDS: FUROSEMIDE INJECTION 100 MG in D5W 5% 100 ML IV SCH ×4 (00:29→07:22)
[2021-07-15] MEDS: ALBUTEROL SULF 2.5 MG/0.5ML(0.5%) NEB SOLN NEB SCH ×2 (01:36→06:14)
[2021-07-15] MEDS: IPRATROPIUM BROM 0.5 MG/2.5ML INH SOL NEB SCH ×2 (01:36→06:14)
[2021-07-15] MEDS: SULFAMETH-TRIMETH 80/16MG-ML 25 ML in D5W 5% 500 ML IV SCH (04:00)
[2021-07-15 04:57] LABS: Basophils # (auto) 0 10 ^3/uL (0-0.2); Basophils % (auto) 0.2 % (0.0-2.0); Eosinophils # (auto) 0.1 10 ^3/uL (0-0.8); Lymphocytes # (auto) 0.8 10 ^3/uL (0.4-5.4); Nucleated Red Blood Cells % 0.1 %; Red Blood Cells 2.76 10^6/uL (4.0-5.20)
[2021-07-15 05:00] LABS: Eosinophils % (auto) 0.7 % (0.0-7.0); Hematocrit 22.1 % (36.0-46.0); Hemoglobin 7.3 g/dL (12.2-16.2); Lymphocytes % (auto) 6.3 % (10.0-50.0); Mean Corpuscular Hemoglobin 26.5 pg (28.0-32.0); Mean Corpuscular Hgb Conc. 33.2 g/dL (32.0-36.0); Mean Corpuscular Volume 79.9 fL (80.0-100.0); Monocytes # (auto) 0.6 10 ^3/uL (0-1.3); Monocytes % (auto) 4.8 % (0.0-12.0); Neutrophils # (auto) 11.1 10 ^3/uL (1.6-8.6); Red Cell Distribution Width 14.8 % (11.8-14.3); White Blood Cell 12.6 10^3/uL (4.4-10.8)
[2021-07-15 05:19] LABS: Potassium 5.1 mmol/L (3.5-5.1)
[2021-07-15 05:23] LABS: BUN/Creatinine Ratio 23.3; Calcium 7.9 mg/dL (8.5-10.1)
[2021-07-15] MEDS: NOREPINEPHRINE 8 MG/250ML KIT 250 ML IV SCH (05:39)
[2021-07-15] MEDS: ACCU-CHEK COMFORT CURVE STRIP VI SCH (05:57)
[2021-07-15] MEDS: InsuLIN REG 1unit/0.01ml Soln (100units/ml) SC SCH (05:57)
[2021-07-15] MEDS: BUDESONIDE (INHALATION) 0.5 MG/2 ML NEB NEB SCH (06:14)
[2021-07-15] MEDS: PANTOPRAZOLE 40 MG/10 ML VIAL INJ IV SCH (09:38)
[2021-07-15] MEDS: ZINC SULFATE 220mg CAP or TAB PO SCH (09:43)
[2021-07-15] MEDS: SODIUM CHLOR 0.9% PF (SALINE LOCK) 10ML VIAL/SYR IV SCH (09:43)
[2021-07-15] MEDS: METOCLOPRAMIDE HCL 5MG/ml INJ 2ml VIAL IV SCH (09:43)
[2021-07-15] MEDS: MULTIPLE VITAMIN TAB PO SCH (09:46)
[2021-07-15] MEDS: AMIODARONE HCL 200 MG TAB PO SCH (09:46)
[2021-07-15] MEDS: CHOLECALCIFEROL (VITD3) 2,000 UNIT CAP/TAB PO SCH (09:46)
[2021-07-15] MEDS: ASCORBIC ACID 1,000 MG TAB PO SCH (09:46)
[2021-07-15] MEDS: ENOXAPARIN SOD 40 MG/0.4 ML SYRINGE SC SCH (09:46)
[2021-07-15] MEDS ORDERED: CALCIUM CHLOR(10%) 100MG/ML 10ML SYRINGE IV ONE (11:48)
[2021-07-15] MEDS ORDERED: ATROPINE SULF 1 MG/10ml SYR IV ONE (11:48)
[2021-07-15] MEDS ORDERED: SODIUM FERR GLUC 62.5MG/5ML 125 MG in SODIUM CHL 0.9% 100 ML IV SCH (12:00)
== END 2021-07-15 10:10 | DRG 870 ==
LOC: ER 16:31 → TELE 21:51 → ICU CENTRL 06-23 10:21 → DOU IN ICU 06-23 20:56
PROVIDERS: ADMIT Nurse Practitioner Family; ATTEND Internal Medicine
PROC: XW033E5 Introduction of Remdesivir Anti-infective into Peripheral Vein, Percutaneous Approach, New Technology Group 5 (ICD-10-PCS; principal; 2021-06-20)
PROC: 5A1955Z Respiratory Ventilation, Greater than 96 Consecutive Hours (ICD-10-PCS; 2021-06-21)
PROC: 0BH17EZ Insertion of Endotracheal Airway into Trachea, Via Natural or Artificial Opening (ICD-10-PCS; 2021-06-21)
PROC: 5A09357 Assistance with Respiratory Ventilation, Less than 24 Consecutive Hours, Continuous Positive Airway Pressure (ICD-10-PCS; 2021-06-21)
PROC: 06HY33Z Insertion of Infusion Device into Lower Vein, Percutaneous Approach (ICD-10-PCS; 2021-06-21)
PROC: 5A12012 Performance of Cardiac Output, Single, Manual (ICD-10-PCS; 2021-07-15)
DX: A41.89 Other specified sepsis (principal); U07.1 COVID-19; J96.01 Acute respiratory failure with hypoxia; J12.82 Pneumonia due to coronavirus disease 2019; N17.0 Acute kidney failure with tubular necrosis; R65.21 Severe sepsis with septic shock; G93.41 Metabolic encephalopathy; K56.7 Ileus, unspecified; E87.1 Hypo-osmolality and hyponatremia; J98.11 Atelectasis; Z68.42 Body mass index [BMI] 45.0-49.9, adult; E46 Unspecified protein-calorie malnutrition; J95.851 Ventilator associated pneumonia; Z16.24 Resistance to multiple antibiotics; E11.22 Type 2 diabetes mellitus with diabetic chronic kidney disease; E66.01 Morbid (severe) obesity due to excess calories; E78.5 Hyperlipidemia, unspecified; E88.09 Other disorders of plasma-protein metabolism, not elsewhere classified; K21.9 Gastro-esophageal reflux disease without esophagitis; N18.9 Chronic kidney disease, unspecified; E87.5 Hyperkalemia; J98.2 Interstitial emphysema; I48.0 Paroxysmal atrial fibrillation; I12.9 Hypertensive chronic kidney disease with stage 1 through stage 4 chronic kidney disease, or unspecified chronic kidney disease; I46.9 Cardiac arrest, cause unspecified; B96.89 Other specified bacterial agents as the cause of diseases classified elsewhere
CPT/HCPCS: 36415; 36569; 36600; 71045; 71275; 74018; 76775; 80048; 80053; 80202; 81001; 82306; 82570; 82607; 82728; 82746; 82805; 82962; 83036; 83540; 83550; 83605; 83615; 83735; 83880; 83935; 84100; 84132; 84156; 84300; 84484; 84550; 85007; 85025; 85027; 85045; 85379; 85610; 85730; 86141; 86880; 87040; 87070; 87077; 87081; 87086; 87088; 87186; 87205; 87426; 92950; 93005; 93306; 93970; 94002; 94003; 94640; 96365; 96366; 96367; 96372; 96375; 96376; 99291; A4618; C9113; G0378; J0330; J0696; J1100; J1756; J1815; J2185; J2250; J2543; J2704; J3480; J3490; J7060; P9047